=== PATIENT | female | born 1940 | race Caucasian/White ===

== ENCOUNTER 2018-04-06 21:14 | Outpatient (REF) | payer MEDICARE, BC, SELFPAY ==
[2018-04-06 22:01] LABS: Vitamin B12 175 pg/mL (193-986)
== END 2018-04-06 21:34 ==
LOC: NCHCN 21:14
PROVIDERS: PCP Internal Medicine; Visit Provider Internal Medicine
DX: E53.8 Deficiency of other specified B group vitamins (principal); R53.81 Other malaise
CPT/HCPCS: 82607

== ENCOUNTER 2018-06-12 13:33 | Outpatient (CLI) | payer MEDICARE, BC, SELFPAY ==
--- NOTE | 2018-06-12 12:59 | DI.RAD_ITS ---
SYMPTOM/DIAGNOSIS: RIGHT HAND PAIN M79.641, M79.644, M25.531, M18.12 C43.9 RIGHT HAND: There are no prior comparison exams. There are moderate degenerative changes of the 1st metacarpal phalangeal joint. Mild degenerative changes are seen at the interphalangeal joint, the carpal metacarpal joints. IMPRESSION: Degenerative changes, greatest at the 1st metacarpal phalangeal joint.
--- NOTE | 2018-06-12 12:59 | DI.RAD_ITS ---
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 There are mild degenerative changes at the intercarpal joints. There is no evidence of fracture. Moderate to severe degenerative changes are seen at the first metacarpal phalangeal joint. IMPRESSION: Moderate degenerative changes.
== END 2018-06-12 13:53 ==
PROVIDERS: PCP Internal Medicine; Visit Provider Internal Medicine
DX: M79.641 Pain in right hand (principal); M79.644 Pain in right finger(s); M25.531 Pain in right wrist; M18.12 Unilateral primary osteoarthritis of first carpometacarpal joint, left hand; C43.9 Malignant melanoma of skin, unspecified; M19.031 Primary osteoarthritis, right wrist; M19.041 Primary osteoarthritis, right hand
CPT/HCPCS: 73110; 73130

== ENCOUNTER 2019-01-02 12:21 | Outpatient (REF) | payer MEDICARE, BC, SELFPAY ==
[2019-01-02 21:47] LABS: BUN 22 mg/dL (7-18); CREATININE 0.52 mg/dL (0.55-1.02); Calcium 9.3 mg/dL (8.5-10.1); Chloride 107 mmol/L (98-107); Glucose 181 mg/dL (70-100); Potassium 4.4 mmol/L (3.5-5.1); Sodium 143 mmol/L (136-145); TSH 0.42 uIU/mL (0.358-3.74)
== END 2019-01-02 12:41 ==
LOC: NCHCN 12:21
PROVIDERS: PCP Internal Medicine; Visit Provider Internal Medicine
DX: E03.2 Hypothyroidism due to medicaments and other exogenous substances (principal); E11.49 Type 2 diabetes mellitus with other diabetic neurological complication
CPT/HCPCS: 80048; 84443

== ENCOUNTER 2019-04-09 19:42 | Observation (INO) | payer MEDICARE, BC, SELFPAY ==
[2019-04-09] VITALS (39 sets, daily range): BP systolic 129–199; BP diastolic 52–115; PULSE 61–137; RESP 11–38; TEMP 36.5; O2SAT 94–99
--- NOTE | 2019-04-09 20:03 | ED.GENADUL_ITS ---
Discharge Plan Disposition Patient Disposition: [facility] INPATIENT Condition: Good Discharge Details Chief Complaint: Abd Prob Clinical Impression: Hypertensive emergency, Nausea and vomiting Admit Date/Time: 04/09/19 22:58 Admit Provider: Popeye Sousa Attending Provider: Michaela Foreman Primary Care Provider: Garcia Gilliland ED Provider: Alek Bhatia [facility] Course Hospital Course: Ms Zepeda is an 78 year old female with PMHx of breast cancer, melanoma, IDDM2, hypothyroidism, observed on [facility] hospitalist service from 04/09/19 until 04/10/19 for an episode of uncontrolled hypertension in setting of what appears to have been a viral gastroenteritis. There have been no further spikes in blood pressure on 04/10/19. Her CT imaging of the brain and abdomen was negative for any acute abnormalities or for any evidence of metastatic disease in the abdo men. Her magnesium was repleted. The patient is able to tolerate PO and is asymptomatic. She is medically ready for discharge home with follow up with her PCP within 1 week. We spoke about purchasing a blood pressure cuff for home blood pressure monitoring, which the patient is considering. The patient verbalizes some reflux symptoms on occasion, for which I am starting her on PPI. She should have bloodwork done in a week to check her chemistry and magnesium. Discharge Instructions Instructions: Acute Nausea and Vomiting (DC) Additional Instructions: Return to the hospital with any fever, bleeding, chest pain, or shortness of breath. Do not take metformin for the next 48 hours. Measure your blood pressure at home with a blood pressure cuff twice daily at the same time. Notify your MD if you are noticing blood pressures with top numbers of 170 or greater. Follow up with your PCP within 1 week. Bloodwork in 1 week. Forms: Nursing Discharge Form Referrals: Garcia Gilliland MD [Primary Care Provider] - Discharge Data Discharge Date/Time-TO BE ENTERED AT DEPARTURE: 04/10/19 00:32 Medical Decision Making 20:05 --78-year-old female here with nausea and vomiting today. Patient is tachycardic and appears dehydrated. She is also hypertensive. Abdominal exam is benign. Plan to check labs to assess for electrolyte abnormalities. Patient has no chest pain but consider atypical presentation for ACS given risk factors. I will check ECG and troponin. We will give IV fluid bolus and Zofran IV. Plan to reassess. --ECG was reviewed and interpreted by me: Sinus rhythm 79 bpm, frequent ectopic ventricular beats, left axis deviation, right bundle branch block pattern, subtle ST depressions noted lead I, aVL, these are new compared to last prior ECG in system from 11/29/2005. 21:30 --patient initially reassessed and had improved with Zofran. Now with recurrent nausea. Repeat vitals demonstrate improvement in tachycardia but persistently hypertensive. Consider hypertensive emergency. I will treat with labetalol 20 mg IV. Will give second dose of zofran. -- Patient reassessed and BP improved - decreased to 129/98. 22:45 -- CT head reviewed. No large mass. Awaiting radiology read. Patient reassessed and continues to have no abdominal pain and abdominal exam benign. Initially no inpatient beds available and patient resistant to transfer to another facility. Patient plan to leave AGAINST MEDICAL ADVICE. Fortunately a telemtry bed did become available and patient agreeable to admission. Plan for admission. Will discuss with hospitalist. 23:00 --ED presentation and course discussed with on-call hospitalist Dr. Sousa who will admit the patient. He recommends initiating oral antihypertensive metoprolol 25 mg and he will be placing admission orders. HPI General Mode of arrival: ambulatory . Date/Time Provider Initiated Documentation: 04/09/19 19:52 . Limitations to Documentation: no limitations . Information obtained by: patient . HPI Narrative: 78-year-old female with history of diabetes, hypothyroidism, hypercholesterolemia, here with chief complaint of vomiting. Patient notes that she woke up this morning feeling generally sore which she attributed to yoga from the day before. This was not out of the ordinary for her. Around 10 AM she started to have some mild nausea and anorexia. Later in the day around 3 PM she developed severe nausea and vomiting. Vomiting is persisted. Vomiting is nonbloody. No modifiers. She feels dehydrated. She denies chest pain. No abdominal pain. No urinary symptoms. No recent travel. No exotic or undercooked foods. Related Data Home Medications Medication Instructions Recorded Confirmed levothyroxine 100 mcg PO HS 08/03/13 04/09/19 Levemir FlexTouch U-100 Insuln 50 unit SUBCUT HS 04/09/19 04/09/19 anastrozole 1 mg PO DAILY 04/10/19 04/10/19 cyanocobalamin (vitamin B-12) 1,000 mcg IM [id number] 04/10/19 04/10/19 ibuprofen 800 mg PO TID PRN 04/10/19 04/10/19 magnesium oxide 400 mg PO DAILY #30 tab 04/10/19 metformin [Glucophage] 500 mg PO DAILY #0 tab 04/10/19 04/10/19 oxybutynin chloride 5 mg PO QHS 04/10/19 04/10/19 pantoprazole [Protonix] 40 mg PO DAILY #30 tab 04/10/19 venlafaxine 150 mg PO DAILY 04/10/19 04/10/19 Previous Rx's Medication Instructions Recorded magnesium oxide 400 mg PO DAILY #30 tab 04/10/19 metformin [Glucophage] 500 mg PO DAILY #0 tab 04/10/19 pantoprazole [Protonix] 40 mg PO DAILY #30 tab 04/10/19 Allergies Allergy/AdvReac Type Severity Reaction Status Date / Time penicillin G Allergy Intermediate Hives Unverified 04/09/19 19:52 morphine AdvReac Severe Nausea Unverified 04/09/19 19:52 General Stated Complaint: Abd Prob YU: 3 Review of Systems Review of Systems ROS Unobtainable: All systems reviewed & are unremarkable except as noted in HPI and below Constitutional Constitutional: Denies fever(s) Gastrointestinal Gastrointestinal: Reports loose stools, Reports nausea and Reports vomiting PFSH Social History Smoking/Tobacco Use Status: Current every day Tobacco Type: cigarettes Alcohol Intake: current Alcohol Intake frequency: holidays/special occasions only Drug use: Never Substance use type: does not use Do you feel safe at home: Yes Do you feel safe in your relationship?: Yes Exam Const General: cooperative and no acute distress [facility] Head: normocephalic Eyes Conjunctivae: normal conjunctivae Sclera: normal sclerae Neck Neck: trachea midline and supple Resp Auscultation: clear to auscultation bilaterally, no rales, no rhonchi and no wheezes Cardio Jugular venous pressure: no JVD Rate: tachycardic Rhythm: regular rhythm Heart Sounds: no murmurs GI Palpation: soft, not firm, no guarding, no masses, not rigid and nontender Skin General skin exam: no rashes or lesions noted Neuro General: alert, awake and tone normal Extrem General: no edema Psych Appearance: grossly normal Mental Status: mental status grossly normal Course Vital Signs Vital signs: Vital Signs Temperature 36.5 C 04/09/19 19:46 Pulse 137 H 04/09/19 19:46 Respiratory Rate 28 H 04/09/19 19:46 Blood Pressure 199/115 H 04/09/19 19:46 Pulse Oximetry 97 04/09/19 19:46 Temperature 36.5 C 04/09/19 19:46 Temperature Source Skin 04/09/19 19:46 Pulse 137 H 04/09/19 19:46 Respiratory Rate 28 H 04/09/19 19:46 Respiratory Effort Non-Labored 04/09/19 19:54 Blood Pressure 199/115 H 04/09/19 19:46 Blood Pressure Position Sitting 04/09/19 19:46 Pulse Oximetry 97 04/09/19 19:46 Oxygen Delivery Method Room Air 04/09/19 19:46 Oxygen Flow Rate 0 04/09/19 19:46 Pain Level 7 04/09/19 19:46
[2019-04-09] MEDS: Lactated Ringers 1,000 ML 1000 ML IV (20:23)
[2019-04-09] MEDS: Ondansetron 4 MG/2 ML VIAL IVP ×2 (20:23→21:48)
[2019-04-09 20:33] LABS: Abs Immature Grans 0.01 k/cumm (0.0-0.09); Absolute Basophil Count 0.02 k/cumm (0.0-0.2); Absolute Eosinophil Count 0.07 k/cumm (0.0-0.7); Absolute Monocyte Count 0.56 k/cumm (0.11-0.7); Absolute Neutrophil Count 5.03 k/cumm (1.2-6.7); Basophils % 0.3; Eosinophils % 1.1; HCT 35.5 % (36.0-46.0); Immature Grans % 0.2; Lymphocytes % 12.3; Mean Corpuscular Hemoglobin 21.2 pg (27.0-33.0); Mean Platelet Volume 10.3 fL (8.0-11.0); Monocytes % 8.6; Neutrophils % 77.5; Platelet Count 261 x1000/uL (130-400); RBC Distribution Width 18.3 % (11.7-14.6); White Blood Cell Count 6.49 k/cumm (4.4-10.8)
[2019-04-09 20:36] LABS: Mean Corpuscular Volume 68.3 fL (80-95)
[2019-04-09 21:08] LABS: Anisocytosis 1+; Hypochromasia 2+; Microcytosis 2+
[2019-04-09 21:17] LABS: ALT 18 U/L (14-59); AST 16 U/L (15-37); Albumin 3.6 g/dL (3.4-5.0); Alkaline Phosphatase 76 U/L (46-116); Anion Gap 9.9 mmol/L (3-11); BUN 17 mg/dL (7-18); Bilirubin, Total 0.5 mg/dL (0.2-1.0); CO2 26.1 mmol/L (21.0-32.0); CREATININE 0.59 mg/dL (0.55-1.02); Chloride 107 mmol/L (98-107); Glucose 209 mg/dL (70-100); Lipase 66 U/L (73-393); Magnesium 1.6 mg/dL (1.8-2.4); Potassium 3.8 mmol/L (3.5-5.1); Sodium 143 mmol/L (136-145)
[2019-04-09 21:25] LABS: Troponin I < 0.05 ng/mL (0.00-0.06)
--- NOTE | 2019-04-09 21:34 | DI.CT_ITS ---
EXAM: CT HEAD WO CLINICAL HISTORY: hypertension, vomiting, hx breast CA. TECHNIQUE: The exam was performed according to the usual protocol without intravenous contrast mater ial. COMPARISON: No exams were available for comparison FINDINGS: Age-appropriate atrophic changes are identified. There is no evidence of a hemorrhage or mass. There are regions of diminished absorption involving the frontoparietal white matter consistent with small vessel disease. There is no skull fracture. The sinuses are normal. There is no mastoid effusion. T he soft tissues are unremarkable. IMPRESSION: No acute intracranial abnormality is demonstrated.
[2019-04-09] MEDS: Labetalol 100 MG/20 ML VIAL 20 MG IVP (21:49)
--- NOTE | 2019-04-09 22:50 | DI.VRAD_ITS ---
PROCEDURE INFORMATION: Exam: CT Head Without Contrast Exam date and time: 04/09/2019 9:38 PM Clinical history: 78 years old, female; Patient HX: Hypertension, vomiting, HX breast CA TECHNIQUE: Imaging protocol: Computed tomography of the head without contrast. COMPARISON: MRI - BRAIN W/WO CONTRAST 04/20/2013 4:43 PM FINDINGS: Brain: Typical for age. No hemorrhage. No evidence of acute infarct. No mass. Ventricles: No ventriculomegaly. Bones/joints: Unremarkable. Sinuses: No sinus fluid. Mastoid air cells: Unremarkable. Soft tissues: Unremarkable. IMPRESSION: No acute intracranial abnormality. Dictated and Authenticated by: Garcia Jin MD. Ordering:STALIN Gaston MD
[2019-04-09] MEDS: Metoprolol 25 MG TAB PO (23:06)
[2019-04-09] MEDS: Magnesium Oxide 400 MG TAB PO (23:06)
--- NOTE | 2019-04-09 23:31 | HPE_ITS ---
Date of service: 04/09/19 Time of Service: 23:31 Assessment and Plan Assessment and plan (1) Uncontrolled hypertension: Start date: 04/09/19 Status: Acute Assessment and plan: The patient is currently not on anti-hypertensives but with her acute symptoms she was extremely hypertensive requiring treatment in the ED. We will observe her overnight with continued oral metoprolol after receiving labetalol IV and 1 dose of metoprolol which did bring her blood pressure more toward normal. She has not taken any of her diabetic medications today and will have glucometer coverage during her short stay. She will receive IV hydration overnight and advance oral intake in the morning with discharge home if she is doing well. Long-term she may want further evaluation of her recent onset of epigastric discomfort and heartburn. (2) Nausea and vomiting: Start date: 04/09/19 Status: Acute Assessment and plan: This is of sudden onset the day of admission she has had 2 months of some abdominal discomfort and has had a previous gallbladder removal with no hematemesis with her vomiting on the day of admission. Patient can discuss further evaluation as an outpatient with her PMD with at least an EGD to be entertained with her recent symptoms and this severe episode. Lab will be followed up in the morning. Qualifiers: Vomiting Intractability: non-intractable Vomiting type: unspecified Qualified Code(s): R11.2 - Nausea with vomiting, unspecified History of Present Illness History of Present Illness Chief Complaint: Nausea and vomiting at onset with increased blood pressure in the ED Narrative: This is an 78-year-old lady who awakened in the morning of admission feeling sore from the previous day of weekly yoga which is not unusual for her. She also walks daily with her to border colleagues. She had nausea and decreased appetite during the day and began to have severe nausea and vomiting prompting her to present to the ED for evaluation. In the ED she was found to be extremely hypertensive and did respond to IV fluid resuscitation for probable dehydration with her fluid loss and IV labetalol and then oral metoprolol with blood pressure control. Her initial lab showed hyperglycemia and slight hypomagnesemia but otherwise was unrevealing. CT scan of the head was unrevealing with the patient having mild headache intermittently in the recent past. She does have a history of breast cancer but without metastases. She is generally healthy with diabetes, well- controlled hypothyroidism and on no antihypertensives chronically. She is on treatment for hyperlipidemia. She does smoke but states that she is quitting. She has had no cardiac events and had no complaints of chest pain with this presentation. At the time I saw the patient she stated that all her nausea and acute symptoms had resolved. Review of Systems Review of Systems Narrative: 13 point review of systems otherwise unrevealing or stable except for her presentation the day of admission. [facility] Social History Smoking/Tobacco Use Status: Current every day Tobacco Type: cigarettes Alcohol Intake: current Alcohol Intake frequency: holidays/special occasions only Drug use: Never Substance use type: does not use Do you feel safe at home: Yes Do you feel safe in your relationship?: Yes Meds Home Medications and Allergies Home Medications Medication Instructions Recorded Confirmed Type amitriptyline 150 mg PO HS 08/03/13 04/09/19 History aspirin 325 mg PO HS 08/03/13 04/09/19 History glimepiride 8 mg PO HS 08/03/13 04/09/19 History levothyroxine 100 mcg PO HS 08/03/13 04/09/19 History metformin [Glucophage] 1,000 mg PO HS 08/03/13 04/09/19 History pravastatin 40 mg PO HS 08/03/13 04/09/19 History insulin detemir U-100 [Levemir 50 unit SUBCUT HS 04/09/19 04/09/19 History FlexTouch U-100 Insuln] Allergies Allergy/AdvReac Type Severity Reaction Status Date / Time penicillin G Allergy Intermediate Hives Unverified 04/09/19 19:52 morphine AdvReac Severe Nausea Unverified 04/09/19 19:52 Exam Narrative Exam Narrative: General: Patient is alert and oriented x3 and in no acute distress. She appears comfortable. Affect is normal and she has good eye contact. Memory is intact. HEENT: Normocephalic with eyes having pupils equal and reactive to light symmetrically with extraocular movement intact and sclera anicteric. Oropharynx clear with moist mucosa. Neck: Supple without JVD. Back: Normal posture without CVA tenderness. Lungs: Bronchovesicular breath sounds diffusely with no focalizing rales or rhonchi. No expiratory wheeze. Heart: Regular rate and rhythm at the time of my exam with the patient being tac hycardic in the ED. No murmurs or gallops appreciated. Breast: Exam deferred. Abdomen: Slightly protuberant and obese but soft to palpation with no tenderness, no palpable masses and no hepatosplenomegaly. Genitalia/rectal: Exam deferred. Extremities: Without clubbing cyanosis or edema. Peripheral pulses intact. Neuro: No focalizing motor deficits, cranial nerves II through XII grossly intact and sensation grossly intact. Skin: Warm and dry with thin skin and actinic changes diffusely with scaliness and rough texture. Psych: Normal affect and mood. Results Imaging Imaging Studies: Exam(s) PROCEDURE INFORMATION: Exam: CT Head Without Contrast Exam date and time: 04/09/2019 9:38 PM Clinical history: 78 years old, female; Patient HX: Hypertension, vomiting, HX breast CA TECHNIQUE: Imaging protocol: Computed tomography of the head without contrast. COMPARISON: MRI - BRAIN W/WO CONTRAST 04/20/2013 4:43 PM FINDINGS: Brain: Typical for age. No hemorrhage. No evidence of acute infarct. No mass. Ventricles: No ventriculomegaly. Bones/joints: Unremarkable. Sinuses: No sinus fluid. Mastoid air cells: Unremarkable. Soft tissues: Unremarkable. IMPRESSION: No acute intracranial abnormality. Dictated and Authenticated by: Garcia Jin MD. Labs Result diagrams: 04/09/19 20:20 04/09/19 20:20 Labs: Laboratory Results - last 24 hr 04/09/19 04/09/19 20:20 20:20 WBC 6.49 RBC 5.20 Hgb 11.0 L Hct 35.5 L MCV 68.3 L MCH 21.2 L MCHC 31.0 L RDW 18.3 H Plt Count 261 MPV 10.3 Immature Gran % 0.2 Neutrophils % 77.5 Lymphocytes % 12.3 Monocytes % 8.6 Eosinophils % 1.1 Basophils % 0.3 Absolute Neutrophils 5.03 Absolute Lymphocytes 0.80 L Absolute Monocytes 0.56 Absolute Eosinophils 0.07 Absolute Basophils 0.02 RBC Morphology See below Hypochromasia 2+ Anisocytosis 1+ Microcytosis 2+ Sodium 143 Potassium 3.8 Chloride 107 Carbon Dioxide 26.1 Anion Gap 9.9 BUN 17 Creatinine 0.59 Estimated GFR/1.73 m2 >= 60.00 Glucose 209 H Calcium 9.0 Magnesium 1.6 L Total Bilirubin 0.5 AST 16 ALT 18 Alkaline Phosphatase 76 Troponin I < 0.05 Total Protein 7.0 Albumin 3.6 Lipase 66 L Last Vital Signs Temp 36.5 C 04/09/19 19:46 Pulse 66 04/09/19 23:01 Resp 24 04/09/19 23:01 BP 157/64 H 04/09/19 23:01 Pulse Ox 96 04/09/19 23:10
[2019-04-09 23:34] LABS: Troponin I < 0.05 ng/mL (0.00-0.06)
[2019-04-10] VITALS (11 sets, daily range): BP systolic 110–151; BP diastolic 60–77; PULSE 54–72; RESP 16–18; TEMP 36–37; O2SAT 94–98
[2019-04-10 01:09] LABS: Bilirubin Negative (Negative); Blood Negative (Negative); Clarity Clear (Clear); Glucose Negative (Negative); Ketones 80 mg/dL (Negative); Leukocyte Esterase Negative (Negative); Nitrite Negative (Negative); Urobilinogen 0.2 EU/dL (Up TO 0.2); pH 6.5 (5-8)
[2019-04-10] MEDS: Insulin Aspart 300 UNITS/3 ML PEN SC ×3 (01:25→12:11)
[2019-04-10] MEDS: Normal Saline 1,000 ML 125 ML IV ×2 (01:27→09:14)
[2019-04-10] MEDS: Heparin 5,000 UNITS/ML VIAL 5000 UNITS SC ×2 (01:27→05:58)
[2019-04-10] MEDS: Ondansetron O.D.T. 4 MG TABEF PO (03:57)
[2019-04-10] MEDS: Metoprolol 25 MG TAB PO ×2 (05:58→12:16)
[2019-04-10 06:03] LABS: HCT 31.4 % (36.0-46.0); HGB 9.7 g/dL (12.0-15.5); Mean Corp. HGB Concentration 30.9 g/dL (32.0-36.0); Mean Corpuscular Hemoglobin 21.4 pg (27.0-33.0); Mean Corpuscular Volume 69.3 fL (80-95); Mean Platelet Volume 10.2 fL (8.0-11.0); Platelet Count 229 x1000/uL (130-400); RBC 4.53 m/cumm (4.00-5.20); White Blood Cell Count 6.49 k/cumm (4.4-10.8)
[2019-04-10 06:21] LABS: ALT 14 U/L (14-59); AST 13 U/L (15-37); Albumin 3.1 g/dL (3.4-5.0); Alkaline Phosphatase 63 U/L (46-116); BUN 12 mg/dL (7-18); Bilirubin, Total 0.5 mg/dL (0.2-1.0); CO2 28.8 mmol/L (21.0-32.0); CREATININE 0.59 mg/dL (0.55-1.02); Calcium 8.4 mg/dL (8.5-10.1); Glucose 154 mg/dL (70-100); Magnesium 1.6 mg/dL (1.8-2.4); TSH (W/Ref FT4) 1.22 uIU/mL (0.36-3.74); Troponin I < 0.05 ng/mL (0.00-0.06)
[2019-04-10 06:46] LABS: Hemoglobin A1C 6.6 % (4.5-6.2)
[2019-04-10 08:57] LABS: Anion Gap 5.5 mmol/L (3-11); BUN 11 mg/dL (7-18); CO2 28.5 mmol/L (21.0-32.0); CREATININE 0.67 mg/dL (0.55-1.02); Calcium 8.3 mg/dL (8.5-10.1); Chloride 109 mmol/L (98-107); Glucose 174 mg/dL (70-100); Potassium 3.9 mmol/L (3.5-5.1); Sodium 143 mmol/L (136-145)
[2019-04-10] MEDS: Pantoprazole 40 MG VIAL IVP (09:13)
[2019-04-10] MEDS: MAGNESIUM SULFATE 2 GM/50 ML BAG IVPB (09:14)
[2019-04-10] MEDS: Magnesium Oxide 400 MG TAB PO (09:14)
[2019-04-10] MEDS: Normal Saline Flush 10 ML SYR IVP (09:20)
--- NOTE | 2019-04-10 10:45 | INITIAL_ITS ---
Care Management Initial Assess REASON FOR HOSPITALIZATION:: Uncontrolled HTN, N/V PAST MEDICAL HISTORY/PAST SURGICAL HISTORY:: Current everyday cigarette smoker PREVIOUS FUNCTIONAL STATUS/SOCIAL/FAMILY SUPPORTS:: Umu is and resides alone in [place], [place]. She has a sister in [place] and a friend in [place], [place]. She participates in weekly yoga and walks daily with her border collSurvature. CURRENT FUNCTIONAL STATUS:: Umu was lying in bed, medical staff director at her bedside. was unable to connect with Umu and will re-attempt tomorrow. ADVANCE DIRECTIVES:: None on file at [facility]. Has patient been provided with information about the portal?: Yes Did the patient sign up for the portal?: No CODE STATUS:: Full Code INSURANCE COVERAGE / FINANCIAL ISSUES:: /BS. Medicare CURRENT HOME/COMMUNITY SERVICES/EQUIPMENT:: No current services or equipment. PRIMARY CARE PHYSICIAN:: Garcia Gilliland POTENTIAL DISCHARGE NEEDS:: Palliative consult, further evaluation for additional equipment services, follow up appointments. PATIENT/FAMILY EDUCATION NEEDS:: Review of discharge instructions, discuss Ask Me [employer]. ANTICIPATED BARRIERS TO DISCHARGE:: None identified. TRANSPORTATION:: Via private vehicle with a friend. PLAN:: Umu will discharge home when ready per MD. She will follow up with her PCP and plan of care as prescribed. She will transport via private vehicle with a friend.
[2019-04-10 12:30] LABS: Sodium 145 mmol/L (136-145)
[2019-04-10 12:33] LABS: Potassium 4.1 mmol/L (3.5-5.1)
[2019-04-10 12:34] LABS: Chloride 110 mmol/L (98-107)
[2019-04-10 12:45] LABS: Anion Gap 6.2 mmol/L (3-11)
[2019-04-10 12:52] LABS: HCT 33.9 % (36.0-46.0); HGB 10.2 g/dL (12.0-15.5)
--- NOTE | 2019-04-10 13:20 | DI.CT_ITS ---
EXAM: CT ABDOMEN PELVIS W CLINICAL HISTORY: nausea/vomiting; history of mets to liver. TECHNIQUE: The study was carried out with an intravenous injection of 100 cc of Omnipaque 350. COMPARISON: No exams were available for comparison FINDINGS: Regions of increased density in the left lung base may represent fibrotic changes. Possibility of an acute pneumonitis could not be entirely excluded. These findings to be correlated with the patient' s clinical status. No focal abnormality is demonstrated in the liver. The pancreas and spleen are i ntact. Aside from a small cortical right renal cyst, the kidneys are unremarkable. The adrenals are normal. There is no evidence of bowel obstruction. Diverticulosis is demonstrated without evidence of diverticulitis. There is nothing to suggest an acute appendix. There is no evidence of free air or free fluid in the intraperitoneal space. There is an apparent fibroid uterus. The bladder is sub optimally distended; bladder wall thickening is on that basis. There is no evidence of an aortic ane urysm. Small fat-containing umbilical hernia is demonstrated. Diffuse degenerative changes involvin g the lumbar spine are noted with vacuum discs, echogenic sclerosis and hypertrophic spurring. IMPRESSION: There is evidence of diverticulosis without diverticulitis. There is no focal abnormality in the blair er to suggest metastatic disease.
[2019-04-10] MEDS: Breeza Beverage 473 ML BTL PO (13:39)
[2019-04-10] MEDS: Omnipaque 350 MG/ML 100 ML BTL IJ (13:39)
[2019-04-10] MEDS: Omnipaque 350 MG/ML 50 ML BTL IJ (13:40)
--- NOTE | 2019-04-10 16:10 | CHAPLAIN ---
Umu was resting in bed when I visited. She was very pleasant and easily engaged in a conversation. She said she doesn't have family in the area, but has a friend who visiting and also caring for her two border collie. I explained my role and offered support. I'll continue to visit.
--- NOTE | 2019-04-10 16:30 | W.PM.DS.N ---
Date of service: 04/10/19 Time of Service: 16:30 DS: Diagnosis Discharge Diagnosis (1) Hypertensive urgency: Status: Resolved (2) Viral gastroenteritis: Status: Resolved (3) Hypomagnesemia: Status: Acute (4) Breast cancer: Status: Chronic (5) Melanoma: Status: Acute Discharge Plan Disposition Patient Disposition: HOME Condition: Good Discharge Details Chief Complaint: Abd Prob Clinical Impression: Hypertensive emergency, Nausea and vomiting Reason For Visit: UNCONTROLLED HTN, NAUSEA AND VOMITING Admit Date/Time: 04/09/19 22:58 Admit Provider: Popeye Sousa Attending Provider: Popeye Sousa Primary Care Provider: Garcia Gilliland ED Provider: Alek Bhatia Hospital Course Hospital Course: Ms Zepeda is an 78 year old female with PMHx of breast cancer, melanoma, IDDM2, hypothyroidism, observed on [facility] hospitalist service from 04/09/19 until 04/10/19 for an episode of uncontrolled hypertension in setting of what appears to have been a viral gastroenteritis. There have been no further spikes in blood pressure on 04/10/19. Her CT imaging of the brain and abdomen was negative for any acute abnormalities or for any evidence of metastatic disease in the abdomen. Her magnesium was repleted. The patient is able to tolerate PO and is asymptomatic. She is medically ready for discharge home with follow up with her PCP within 1 week. We spoke about purchasing a blood pressure cuff for home blood pressure monitoring, which the patient is considering. The patient verbalizes some reflux symptoms on occasion, for which I am starting her on PPI. She should have bloodwork done in a week to check her chemistry and magnesium. Home Meds and New Rx's Prescriptions: New magnesium oxide 400 mg (241.3 mg magnesium) Tablet 400 mg PO DAILY Qty: 30 RF: 0 pantoprazole [Protonix] 40 mg tablet,delayed release (DR/EC) 40 mg PO DAILY Qty: 30 RF: 0 Continued levothyroxine 100 MCG tablet 100 mcg PO HS RF: 0 Levemir FlexTouch U-100 Insuln 100 unit/mL (3 mL) Insulin Pen 50 unit SUBCUT HS RF: 0 anastrozole 1 mg Tablet 1 mg PO DAILY RF: 0 ibuprofen 800 mg Tablet 800 mg PO TID PRNRF: 0 venlafaxine 150 mg Capsule,Extended Release 24hr 150 mg PO DAILY RF: 0 oxybutynin chloride 5 mg Tablet 5 mg PO QHS RF: 0 cyanocobalamin (vitamin B-12) 1,000 mcg/mL Solution 1,000 mcg IM [id number] RF: 0 metformin [Glucophage] 1,000 MG tablet 500 mg PO DAILY Qty: 0 RF: 0 Discharge Instructions Instructions: Acute Nausea and Vomiting (DC) Additional Instructions: Return to the hospital with any fever, bleeding, chest pain, or shortness of breath. Do not take metformin for the next 48 hours. Measure your blood pressure at home with a blood pressure cuff twice daily at the same time. Notify your MD if you are noticing blood pressures with top numbers of 170 or greater. Follow up with your PCP within 1 week. Bloodwork in 1 week. Referrals: Garcia Gilliland MD [Primary Care Provider] - Activity:: Activity as Tolerated Equipment/Supplies:: No Equipment Needed Diet:: carb consistent low sodium (2 grams per day) Discharge Orders Discharge Orders: Discharge Order (Routine); Ordered 04/10/19 Ordered By: Michaela Foreman Other Ambulatory Orders: Basic Metabolic Panel (Routine) Timeframe: 1 Week Location: Determined by Patient Ordered By: Michaela Foreman Magnesium (Routine) Timeframe: 1 Week Location: Determined by Patient Ordered By: Michaela Foreman DS: Summary Status at Discharge Functional status at discharge: independent ambulation Overall status at discharge: patient is back to baseline Mental Status: mental status grossly normal Speech and Movement: speech and movement normal Mood: congruent mood Affect: normal affect Exam Narrative Exam Narrative: General: Very pleasant, anxious elderly female, sitting up in bed HEENT: EOMI, MMM Heart: RRR, no m/r/g Lungs: CTAB GI: abdomen is soft, nontender, nondistended Extremities: no e/c/c BLe's Psych Mental Status: mental status grossly normal Speech and Movement: speech and movement normal Mood: congruent mood Affect: normal affect DS: Data Vitals/I&O Vitals and I&O: Vital Signs Temperature 36.2 C L 04/10/19 13:45 Temperature Source Tympanic 04/10/19 13:45 Pulse 54 L 04/10/19 13:45 Pulse Rhythm Regular 04/10/19 15:59 Pulse 80 04/09/19 23:10 Respiratory Rate 18 04/10/19 13:45 Respiratory Effort Non-Labored 04/10/19 15:59 Respiratory Depth Normal 04/10/19 15:59 Respiratory Pattern Normal 04/10/19 15:59 Blood Pressure 110/60 04/10/19 13:45 Blood Pressure Mean 88 04/09/19 23:01 Blood Pressure Position Sitting 04/09/19 19:46 Pulse Oximetry 95 04/10/19 13:45 Oxygen Delivery Method Room Air 04/10/19 13:45 Oxygen Flow Rate 0 04/10/19 13:45 Pain Level 0 04/10/19 13:45 Intake & Output 04/09/19 04/10/19 04/10/19 23:59 11:59 23:59 Intake Total 1000 / 1000 1402.917 / 1402.917 Output Total 750 / 750 Balance 1000 / 1000 652.917 / 652.917 Weight 64.1 kg 63.4 kg Intake: IV 1000 / 1000 982.917 / 982.917 Oral 420 / 420 Output: Urine 750 / 750 Other: Urine Color Yellow Yellow Urine Appearance Cloudy Clear Urine Odor Strong Comment color was dark yellow. 900 ml in hat Voiding Methods Toilet Data Completed and Pending Completed studies during hospitalization [Text1]: CT head without contrast: No acute intracranial abnormality is demonstrated. CT abdomen/pelvis: There is evidence of diverticulosis without diverticulitis. There is no focal abnormality in the liver to suggest metastatic disease. Labs on day of discharge: Labs from last 24 hours 04/10/19 04/10/19 04/10/19 12:35 12:00 08:40 WBC RBC Hgb 10.2 L Hct 33.9 L MCV MCH MCHC RDW Plt Count MPV Immature Gran % Neutrophils % Lymphocytes % Monocytes % Eosinophils % Basophils % Absolute Neutrophils Absolute Lymphocytes Absolute Monocytes Absolute Eosinophils Absolute Basophils RBC Morphology Hypochromasia Anisocytosis Microcytosis Sodium Cancelled 143 Potassium Cancelled 3.9 Chloride Cancelled 109 H Carbon Dioxide Cancelled 28.5 Anion Gap Cancelled 5.5 BUN Cancelled 11 Creatinine Cancelled 0.67 Estimated GFR/1.73 m2 Cancelled >= 60.00 Glucose Cancelled 174 H Hemoglobin A1c Calcium Cancelled 8.3 L Magnesium Total Bilirubin AST ALT Alkaline Phosphatase Troponin I Total Protein Albumin Lipase TSH Urine Color Urine Clarity Urine pH Ur Specific Wray Urine Protein Urine Ketones Urine Blood Urine Nitrite Urine Bilirubin Urine Urobilinogen Ur Leukocyte Esterase Urine Glucose 04/10/19 04/10/19 04/10/19 05:40 05:40 05:40 WBC 6.49 RBC 4.53 Hgb 9.7 L Hct 31.4 L MCV 69.3 L MCH 21.4 L MCHC 30.9 L RDW 18.0 H Plt Count 229 MPV 10.2 Immature Gran % Neutrophils % Lymphocytes % Monocytes % Eosinophils % Basophils % Absolute Neutrophils Absolute Lymphocytes Absolute Monocytes Absolute Eosinophils Absolute Basophils RBC Morphology Hypochromasia Anisocytosis Microcytosis Sodium 145 Potassium 4.1 Chloride 110 H Carbon Dioxide 28.8 Anion Gap 6.2 BUN 12 Creatinine 0.59 Estimated GFR/1.73 m2 >= 60.00 Glucose 154 H Hemoglobin A1c 6.6 H Calcium 8.4 L Magnesium 1.6 L Total Bilirubin 0.5 AST 13 L ALT 14 Alkaline Phosphatase 63 Troponin I Total Protein 6.0 L Albumin 3.1 L Lipase TSH 1.22 Urine Color Urine Clarity Urine pH Ur Specific Wray Urine Protein Urine Ketones Urine Blood Urine Nitrite Urine Bilirubin Urine Urobilinogen Ur Leukocyte Esterase Urine Glucose 04/10/19 04/10/19 04/09/19 05:40 00:52 23:09 WBC RBC Hgb Hct MCV MCH MCHC RDW Plt Count MPV Immature Gran % Neutrophils % Lymphocytes % Monocytes % Eosinophils % Basophils % Absolute Neutrophils Absolute Lymphocytes Absolute Monocytes Absolute Eosinophils Absolute Basophils RBC Morphology Hypochromasia Anisocytosis Microcytosis Sodium Potassium Chloride Carbon Dioxide Anion Gap BUN Creatinine Estimated GFR/1.73 m2 Glucose Hemoglobin A1c Calcium Magnesium Total Bilirubin AST ALT Alkaline Phosphatase Troponin I < 0.05 < 0.05 Total Protein Albumin Lipase TSH Urine Color Yellow Urine Clarity Clear Urine pH 6.5 Ur Specific Wray 1.020 Urine Protein Negative Urine Ketones 80 H Urine Blood Negative Urine Nitrite Negative Urine Bilirubin Negative Urine Urobilinogen 0.2 Ur Leukocyte Esterase Negative Urine Glucose Negative 04/09/19 04/09/19 20:20 20:20 WBC 6.49 RBC 5.20 Hgb 11.0 L Hct 35.5 L MCV 68.3 L MCH 21.2 L MCHC 31.0 L RDW 18.3 H Plt Count 261 MPV 10.3 Immature Gran % 0.2 Neutrophils % 77.5 Lymphocytes % 12.3 Monocytes % 8.6 Eosinophils % 1.1 Basophils % 0.3 Absolute Neutrophils 5.03 Absolute Lymphocytes 0.80 L Absolute Monocytes 0.56 Absolute Eosinophils 0.07 Absolute Basophils 0.02 RBC Morphology See below Hypochromasia 2+ Anisocytosis 1+ Microcytosis 2+ Sodium 143 Potassium 3.8 Chloride 107 Carbon Dioxide 26.1 Anion Gap 9.9 BUN 17 Creatinine 0.59 Estimated GFR/1.73 m2 >= 60.00 Glucose 209 H Hemoglobin A1c Calcium 9.0 Magnesium 1.6 L Total Bilirubin 0.5 AST 16 ALT 18 Alkaline Phosphatase 76 Troponin I < 0.05 Total Protein 7.0 Albumin 3.6 Lipase 66 L TSH Urine Color Urine Clarity Urine pH Ur Specific Wray Urine Protein Urine Ketones Urine Blood Urine Nitrite Urine Bilirubin Urine Urobilinogen Ur Leukocyte Esterase Urine Glucose PFS Social History Smoking/Tobacco Use Status: Current every day Tobacco Type: cigarettes Alcohol Intake: current Alcohol Intake frequency: holidays/special occasions only Drug use: Never Substance use type: does not use Do you feel safe at home: Yes Do you feel safe in your relationship?: Yes
--- NOTE | 2019-04-11 13:59 | PT.INNT ---
Date of service: 04/11/19 Time of Service: 14:00 PT Notes Referral for physical therapy evaluation received on 04/10/2019 at 12:38 PM. Patient discharged from hospital later in the afternoon same day per MD order. Thank you very much for this referral. Radha Arellano PT, DPT, CLT [facility]
== END 2019-04-10 17:37 | disposition home or self-care (01) ==
LOC: ER 23:00 → MS 04-10 00:33
PROVIDERS: Admitting Provider Family Medicine; Emergency Provider Student in an Organized Health Care Education/Training Program; PCP Internal Medicine; Visit Provider Internal Medicine
DX: I16.0 Hypertensive urgency (principal); I10 Essential (primary) hypertension; A08.4 Viral intestinal infection, unspecified; E83.42 Hypomagnesemia; R51 Headache; E11.9 Type 2 diabetes mellitus without complications; Z79.4 Long term (current) use of insulin; E03.9 Hypothyroidism, unspecified; K21.9 Gastro-esophageal reflux disease without esophagitis; C50.919 Malignant neoplasm of unspecified site of unspecified female breast; Z79.811 Long term (current) use of aromatase inhibitors; C43.9 Malignant melanoma of skin, unspecified; E78.5 Hyperlipidemia, unspecified; F17.210 Nicotine dependence, cigarettes, uncomplicated
CPT/HCPCS: 36415; 80048; 80053; 83690; 85027; 93005; 96361; 96374; 96375; 99217; 99219; 99285; 70450; 74177; 81003; 83036; 83735; 84443; 84484; 85014; 85018; 85025; 93010; G0378; J1644; J2405; J3490; Q9967

== ENCOUNTER 2019-04-19 12:14 | Outpatient (REF) | payer MEDICARE, BC, SELFPAY ==
[2019-04-19 22:31] LABS: Anion Gap 10.7 mmol/L (3-11); BUN 19 mg/dL (7-18); CO2 26.3 mmol/L (21.0-32.0); CREATININE 0.69 mg/dL (0.55-1.02); Calcium 9.2 mg/dL (8.5-10.1); Chloride 104 mmol/L (98-107); Glucose 180 mg/dL (70-100); Potassium 4.6 mmol/L (3.5-5.1); Sodium 141 mmol/L (136-145)
[2019-04-20 08:54] LABS: Magnesium 1.8 mg/dL (1.8-2.4)
== END 2019-04-19 12:34 ==
LOC: NCHCO 12:14
PROVIDERS: PCP Internal Medicine; Visit Provider Internal Medicine
DX: E83.42 Hypomagnesemia (principal); Z86.79 Personal history of other diseases of the circulatory system
CPT/HCPCS: 80048; 83735

== ENCOUNTER 2020-03-31 21:35 | Outpatient (REF) | payer MEDICARE, BC, SELFPAY ==
[2020-03-31 22:02] LABS: HCT 37.6 % (36.0-46.0); MCH 19.5 pg (27.0-33.0); MCHC 29.3 % (32.0-36.0); MCV 66.7 fL (80-95); MPV 11.2 fL (8.0-11.0); Platelet Count 292 10^3/uL (130-400); RBC 5.64 10^6/uL (3.93-5.22); RDW 19.9 % (11.7-14.6); RDW-SD 45.3 fL; WBC 8.46 10^3/uL (4.4-10.8)
[2020-03-31 22:17] LABS: ALT 14 U/L (14-59); AST 19 U/L (15-37); Albumin 3.7 g/dL (3.4-5.0); Alkaline Phosphatase 79 U/L (46-116); Anion Gap 11.2 mmol/L (3-11); BUN 19 mg/dL (7-18); Bilirubin, Total 0.3 mg/dL (0.2-1.0); CO2 23.8 mmol/L (21.0-32.0); CREATININE 0.71 mg/dL (0.55-1.02); Calcium 9.4 mg/dL (8.5-10.1); Chloride 104 mmol/L (98-107); FREE T4 1.34 ng/dL (0.76-1.46); Glucose 173 mg/dL (74-106); Potassium 4.4 mmol/L (3.5-5.1); Sodium 139 mmol/L (136-145); TSH 1.27 uIU/mL (0.36-3.74); Total Protein 6.8 g/dL (6.4-8.2)
[2020-04-01 11:00] LABS: Iron 17 ug/dL (50-170)
== END 2020-03-31 21:55 ==
LOC: NCHCN 21:35
PROVIDERS: PCP Internal Medicine; Visit Provider Internal Medicine
DX: E03.2 Hypothyroidism due to medicaments and other exogenous substances (principal); E11.49 Type 2 diabetes mellitus with other diabetic neurological complication; R53.81 Other malaise; R11.0 Nausea; E53.8 Deficiency of other specified B group vitamins; G60.9 Hereditary and idiopathic neuropathy, unspecified; Z85.3 Personal history of malignant neoplasm of breast; D50.9 Iron deficiency anemia, unspecified
CPT/HCPCS: 80053; 85027; 83540; 84439; 84443

== ENCOUNTER → 2020-05-12 10:48 | Outpatient (BNVA) | payer MEDICARE, BC, SELFPAY | PROVIDERS: PCP Internal Medicine; Referring Provider Internal Medicine; Visit Provider Nurse Practitioner Gerontology | DX: N39.46 Mixed incontinence (principal) | CPT/HCPCS: 99204; 99215 ==

== ENCOUNTER → 2020-06-17 10:47 | Outpatient (BNVA) | payer MEDICARE, BC, SELFPAY | PROVIDERS: PCP Internal Medicine; Referring Provider Internal Medicine; Visit Provider Nurse Practitioner Gerontology | DX: N39.46 Mixed incontinence (principal) | CPT/HCPCS: 99213 ==

== ENCOUNTER 2020-09-30 15:10 | Outpatient (REF) | payer MEDICARE, BC, SELFPAY ==
[2020-09-30 21:11] LABS: HCT 43.2 % (36.0-46.0); HGB 13.3 g/dL (11.2-15.7); MCH 23.8 pg (27.0-33.0); MCHC 30.8 % (32.0-36.0); MCV 77.3 fL (80-95); MPV 10.5 fL (8.0-11.0); Platelet Count 262 10^3/uL (130-400); RBC 5.59 10^6/uL (3.93-5.22); RDW 20.6 % (11.7-14.6); RDW-SD 54.4 fL
[2020-09-30 21:19] LABS: Iron 20 ug/dL (50-170); Total Iron Binding Capacity 478 ug/dL (250-450); Transferrin Sat 4 % (15-50)
== END 2020-09-30 15:11 | disposition home or self-care (01) ==
LOC: NCHCN 15:10
PROVIDERS: PCP Internal Medicine; Visit Provider Internal Medicine
DX: E61.1 Iron deficiency (principal); D50.9 Iron deficiency anemia, unspecified
CPT/HCPCS: 85027; 83540; 83550

== ENCOUNTER 2020-11-14 04:23 | Outpatient (RCR) | payer MEDICARE, BC, SELFPAY ==
[2020-10-31] MEDS: Normal Saline Flush 10 ML SYR IVP (11:14)
[2020-10-31] MEDS: IRON SUCROSE COMPLEX 200 MG in Normal Saline 100 ML IVPB (11:19)
[2020-11-07] MEDS: Normal Saline Flush 10 ML SYR IVP (12:47)
[2020-11-07] MEDS: IRON SUCROSE COMPLEX 200 MG in Normal Saline 100 ML 440 MG IVPB (13:01)
[2020-11-14] MEDS: Normal Saline Flush 10 ML SYR IVP (12:49)
[2020-11-14] MEDS: IRON SUCROSE COMPLEX 200 MG in Normal Saline 100 ML 440 MG IVPB (12:49)
== END 2020-11-14 23:59 | disposition home or self-care (01) ==
LOC: INF 04:23
PROVIDERS: PCP Internal Medicine; Visit Provider Nurse Practitioner Acute Care
DX: E61.1 Iron deficiency (principal)
CPT/HCPCS: 96365; J1756

== ENCOUNTER 2021-05-27 14:50 | Outpatient (REF) | payer MEDICARE, BC, SELFPAY ==
[2021-05-27 21:30] LABS: HCT 42.4 % (36.0-46.0); HGB 14.2 g/dL (11.2-15.7); MCH 28.2 pg (27.0-33.0); MCHC 33.5 % (32.0-36.0); MCV 84.1 fL (80-95); MPV 11.8 fL (8.0-11.0); Platelet Count 260 10^3/uL (130-400); RBC 5.04 10^6/uL (3.93-5.22); RDW 13.6 % (11.7-14.6); RDW-SD 41.8 fL; WBC 7.92 10^3/uL (4.4-10.8)
[2021-05-28 08:40] LABS: BUN 14 mg/dL (7-18); Calcium 9.1 mg/dL (8.5-10.1); Glucose 268 mg/dL (74-106)
[2021-05-28 08:41] LABS: ALT 31 U/L (14-59); AST 21 U/L (15-37); Albumin 3.6 g/dL (3.4-5.0); Alkaline Phosphatase 92 U/L (46-116); Anion Gap 9.1 mmol/L (3-11); Bilirubin, Total 0.4 mg/dL (0.2-1.0); CO2 26.9 mmol/L (21.0-32.0); CREATININE 0.6 mg/dL (0.55-1.02); Chloride 106 mmol/L (98-107); Potassium 4.1 mmol/L (3.5-5.1); Sodium 142 mmol/L (136-145); Total Protein 6.4 g/dL (6.4-8.2)
[2021-05-28 08:42] LABS: FREE T4 0.87 ng/dL (0.76-1.46); TSH 6.32 uIU/mL (0.36-3.74)
== END 2021-05-27 14:51 | disposition home or self-care (01) ==
LOC: NCHCN 14:50
PROVIDERS: PCP Internal Medicine; Visit Provider Internal Medicine
DX: E03.2 Hypothyroidism due to medicaments and other exogenous substances (principal); R63.4 Abnormal weight loss; E83.42 Hypomagnesemia; E61.1 Iron deficiency
CPT/HCPCS: 80053; 85027; 84439; 84443

== ENCOUNTER 2021-07-22 12:03 | Outpatient (CLI) | payer MEDICARE, BC, SELFPAY ==
--- NOTE | 2021-07-22 11:00 | DI.RAD_ITS ---
Exam(s) XR SHOULDER RT COMPLETE 2+V EXAM: XR SHOULDER RT COMPLETE 2+V CLINICAL HISTORY: right shoulder pain TECHNIQUE: COMPARISON: CR RIGHT SHOULDER COMPLETE from 02/05/2014 FINDINGS: Two views were obtained. There is mild narrowing of the cartilaginous joint space of the glenohumera l joint. Superior subluxation of the humeral head is noted, this may reflect rotator cuff thinning o r tear superiorly. There are moderate hypertrophic degenerative changes of the acromioclavicular and glenohumeral joints. IMPRESSION: Degenerative changes as described above, superior subluxation of humeral head may represent rotator c uff thinning or tear superiorly. RADIATION DOSE DELIVERED: Total DLP
== END 2021-07-22 12:04 | disposition home or self-care (01) ==
LOC: DIORS 12:03
PROVIDERS: PCP Internal Medicine; Referring Provider Internal Medicine; Visit Provider Student in an Organized Health Care Education/Training Program
DX: M25.511 Pain in right shoulder (principal); M12.811 Other specific arthropathies, not elsewhere classified, right shoulder; M24.511 Contracture, right shoulder; F17.210 Nicotine dependence, cigarettes, uncomplicated; E11.69 Type 2 diabetes mellitus with other specified complication
CPT/HCPCS: 20610; 99203; 99213; 73030; J1040

== ENCOUNTER 2021-09-28 00:22 | Outpatient (CLI) | payer MEDICARE, BC, SELFPAY ==
--- NOTE | 2021-09-28 | DI.RAD_ITS ---
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 TECHNIQUE: 2D digital imaging was performed. COMPARISON: No exams were available for comparison FINDINGS: BONES: No acute fracture is present. No bony destructive lesion is seen. Osteopenia. JOINTS: No dislocation present. Joint spaces are well maintained. Minimal periarticular spurring at the 1st carpal metacarpal joint and interphalangeal joints. SOFT TISSUE: Normal. IMPRESSION: Mild degenerative changes. DATA REPOSITORY: RADIATION DOSE DELIVERED:
--- NOTE | 2021-09-28 | DI.RAD_ITS ---
Exam(s) XR WRIST LT COMPLETE EXAM: XR WRIST LT COMPLETE CLINICAL HISTORY: LT OA,M19.042. TECHNIQUE: 2D digital imaging was performed. Three views. COMPARISON: CR XR HAND LT COMPLETE from 09/28/2021 FINDINGS: BONES: Osteopenia. No acute fracture is present. No bony destructive lesion is seen. JOINTS: The carpal bones are normally aligned. Mild intercarpal degenerative changes. SOFT TISSUE: Mild calcification in the region of the triangular fibrocartilage. IMPRESSION: Mild degenerative changes. DATA REPOSITORY: RADIATION DOSE DELIVERED:
== END 2021-09-28 00:42 ==
PROVIDERS: PCP Internal Medicine; Visit Provider Internal Medicine
DX: M19.042 Primary osteoarthritis, left hand (principal); M85.88 Other specified disorders of bone density and structure, other site; M18.12 Unilateral primary osteoarthritis of first carpometacarpal joint, left hand
CPT/HCPCS: 73110; 73130

== ENCOUNTER → 2021-10-21 12:54 | Outpatient (BNVA) | payer MEDICARE, BC, SELFPAY | PROVIDERS: PCP Internal Medicine | DX: M75.101 Unspecified rotator cuff tear or rupture of right shoulder, not specified as traumatic (principal); M12.811 Other specific arthropathies, not elsewhere classified, right shoulder | CPT/HCPCS: 99213 ==

== ENCOUNTER 2021-11-23 00:22 | Outpatient (CLI) | payer MEDICARE, BC, SELFPAY ==
--- NOTE | 2021-11-23 13:32 | DI.MAMMO_ITS ---
Exam(s) MG MAMMO SCREENING 60 MIN DUR EXAM: MG MAMMO SCREENING 60 MIN DUR CLINICAL HISTORY: SCREENING, HX BREAST CA, Z85.3, RT MASTECTOMY. TECHNIQUE: Craniocaudal and mediolateral oblique Full Field Digital Mammography views of the left br east with Computer Aided Diagnosis followed by Tomosynthesis. COMPARISON: 2015 through 2019 FINDINGS: Mammography/Tomosynthesis: Masses/Architectural Distortion: None seen. Microcalcifictions: No suspicious pleomorphic-type are seen. Skin Thickening/Nipple Retraction: None. IMPRESSION: 1. No evidence of malignancy is noted. 2. Unless there is more urgent need, follow-up screening mammography is recommended, as per [place] [employer] guidelines. 3. The findings were discussed with the patient on the date of the examination. BI-RADS Category 1 - Negative Breast Density - Category B - Scattered areas of fibroglandular density . A negative radiographic report should not delay biopsy if a dominant or clinically suspicious mass is present. Up to ten percent of cancers are not identified on mammography. A negative report may reinforce clinical impression. Adenosis and dense breasts may obscure an underlying neoplasm. False positive reports average 6 to 10%. Patient will receive a letter notifying them of these results.
== END 2021-11-23 00:42 ==
PROVIDERS: PCP Internal Medicine; Visit Provider Internal Medicine
DX: Z12.31 Encounter for screening mammogram for malignant neoplasm of breast (principal); Z90.11 Acquired absence of right breast and nipple; Z85.3 Personal history of malignant neoplasm of breast
CPT/HCPCS: 77063; 77067

== ENCOUNTER 2022-03-09 15:23 | Outpatient (REF) | payer MEDICARE, BC, SELFPAY ==
[2022-03-09 19:28] LABS: TSH 4.62 uIU/mL (0.36-3.74)
[2022-03-09 19:48] LABS: FREE T4 0.83 ng/dL (0.76-1.46)
== END 2022-03-09 15:24 | disposition home or self-care (01) ==
LOC: NCHCN 15:23
PROVIDERS: PCP Internal Medicine; Visit Provider Internal Medicine
DX: E11.49 Type 2 diabetes mellitus with other diabetic neurological complication (principal); E03.9 Hypothyroidism, unspecified; G60.9 Hereditary and idiopathic neuropathy, unspecified; E53.8 Deficiency of other specified B group vitamins
CPT/HCPCS: 84439; 84443

== ENCOUNTER 2022-04-23 11:09 | Emergency (ER) | payer MEDICARE, BC, SELFPAY ==
[2022-04-23 11:10] VITALS: BP 148/69; PULSE 75; RESP 20; TEMP 36.6; O2SAT 99
--- NOTE | 2022-04-23 11:15 | RT.EKG_ITS ---
APPROVED REPORT Exam: Resting ECG Reason for Exam: AMS Patient Location: E HR:91 bpm ECG Measurements Heart Rate 91 AXIS DC 205 P -15 QRSd 122 QRS -73 QT 405 T 64 QTc 499 Conclusion Sinus rhythm...normal P axis, V-rate 60- 99 Right bundle branch block...QRSd>120, terminal axis(90,270) Inferior infarct, old...Q >35mS, II III aVF Anteroseptal infarct, age indeterminate...Q >35mS, T neg, V1-V2
--- NOTE | 2022-04-23 11:30 | DI.CT_ITS ---
Exam(s) CT CERVICAL SPINE WO EXAM: CT CERVICAL SPINE WO CLINICAL HISTORY: fall, HI. TECHNIQUE: Imaging Protocol: Axial computed tomography images with coronal and sagittal reformatted images were created and reviewed COMPARISON: CT CT BRAIN NECK CTA from 04/23/2022 FINDINGS: CERVICAL SPINE: There is reversal of the normal curvature of the cervical spine but no evidence of acute fracture and , facet malalignment, nor offset of the spinal laminar line. There is multilevel chronic disc space narrowing at C5-6 and C6-7 levels. Mild degenerative anterolisthesis of C4 upon C5 related to facet arthropathy. There is no significant facet joint malalignment. No significant osseous lesions evident. IMPRESSION: Multilevel degenerative changes. No evidence of cervical spine fracture, malalignment, nor acute compromise of the cervical spinal can al. RADIATION DOSE DELIVERED: 2,142.71mGy.cm Total DLP DATA REPOSITORY: All CT scans at this facility are submitted to the National Radiology Data Registry (NRDR) Dose Index Registry (DIR) with the [employer] (ACR). RADIATION OPTIMIZATION: All CT scans at this facility use at least one of these dose optimization te chniques: automated exposure control; mA and/or kV adjustment per patient size (includes targeted exa ms where dose is matched to clinical indication); or iterative reconstruction.
--- NOTE | 2022-04-23 11:30 | DI.RAD_ITS ---
Exam(s) XR CHEST 2V PA LATERAL EXAM: XR CHEST 2V PA LATERAL CLINICAL HISTORY: fall. TECHNIQUE: 2D digital imaging was performed. COMPARISON: No exams were available for comparison FINDINGS: 2 views: Heart size is normal. The mediastinum is not widened. Lungs are clear. No infiltrates nor pleural effusions. IMPRESSION: No acute pulmonary findings. DATA REPOSITORY: RADIATION DOSE DELIVERED:
--- NOTE | 2022-04-23 11:30 | DI.CT_ITS ---
Exam(s) CT BRAIN NECK CTA EXAM: CT BRAIN NECK CTA CLINICAL HISTORY: dizziness, fall, HI. TECHNIQUE: Imaging Protocol: Axial CT angiography was performed with multi-slice acquisition and mu lti-planar and/or 3D reconstructions. CONTRAST MATERIAL: Intravenous: Omnipaque 350 Contrast volume:structured data in ml COMPARISON: CT CT ABDOMEN PELVIS W from 04/10/2019 CR XR CHEST 2V PA LATERAL from 04/23/2022 FINDINGS: CTA Neck W: Scarring in the left upper lobe incidentally noted. Aortic arch anatomy: The aortic arch anatomy is conventional. There is no significant stenosis at the origin the great vessels off the aortic arch. Anterior circulation: Both common carotid arteries ascend with normal luminal diameters. There is a some plaque both calci fied and noncalcified at the posterior wall of the left carotid bifurcation-proximal internal carotid artery with approximately 10 percent stenosis. No hemodynamically stenosis seen at this level and t he left ICA in the upper neck is nicely patent. The right carotid bifurcation exhibits similar mild plaque on the anteromedial wall without significa nt stenosis at this level nor hemodynamically significant stenosis within the right ICA in the neck a nd this vessel is demonstrated to be patent in the skull base. Posterior circulation: Both vertebral arteries originate in conventional fashion off of the subclavian arteries. No stenosi s at their origins. The left vertebral artery is dominant. In the foramen transverse area and there is no evidence of intraluminal thrombus in the vertebral arteries nor dissection. Both vessels cont ribute to the formation of the basilar artery at the skull base. CTA Brain W: Anterior circulation: Both internal carotid arteries are patent in the skull base-carotid canals and cavernous sinuses. Wasserman praclinoid aspects are patent. Both A1 segments are patent as are both anterior cerebral arteries an d there is no aneurysm at the level of the anterior communicating artery. Both middle cerebral arteries are patent. No significant stenosis nor occlusion. No aneurysm in the se vessels. Posterior circulation: Basilar artery is formed by both vertebral arteries at the skull base and ascends slightly right of c enter. Distally gives off superior cerebellar arteries and above this level terminates as posterior cerebral arteries. Right posterior cerebral artery is patent. Left posterior cerebral artery is pre dominantly fed by posterior communicating artery on the left side of the [id number]. There is no aneurysm of the tip of the basilar artery nor elsewhere in the [id number]. CT BRAIN: There is no evidence of intracranial hemorrhage, mass effect, or shift of midline structures. There are no extra-axial fluid collections. Ventricles are not enlarged or shifted. There are no ring enh ancing lesions in the brain and no abnormal meningeal enhancement. IMPRESSION: 1. Multilevel chronic degenerative findings in the cervical spine but no evidence of acute fracture o r malalignment. No acute compromise the spinal canal. 2. No acute intracranial findings. 3. Patent intracranial arteries. Only mild plaque at the level the carotid bifurcations and proxim al internal carotid arteries bilaterally. Estimated at approximately 10 percent stenosis bilaterally . Report called by myself to ER provider RADIATION DOSE DELIVERED: 2,142.71mGy.cm Total DLP DATA REPOSITORY: All CT scans at this facility are submitted to the National Radiology Data Registry (NRDR) Dose Index Registry (DIR) with the [employer] (ACR). RADIATION OPTIMIZATION: All CT scans at this facility use at least one of these dose optimization te chniques: automated exposure control; mA and/or kV adjustment per patient size (includes targeted exa ms where dose is matched to clinical indication); or iterative reconstruction.
[2022-04-23 11:36] VITALS: RESP 18
--- NOTE | 2022-04-23 11:45 | ED.GENADUL_ITS ---
Discharge Plan Disposition Patient Disposition: HOME Condition: Stable Discharge Details Clinical Impression: Acute hypokalemia, Hypomagnesemia, Hypoglycemia, Fall, Acute UTI Primary Care Provider: Garcia Gilliland ED Provider: Kassandra Bah Home Meds and New Rx's Prescriptions: New potassium chloride 20 mEq tablet,ER particles/crystals 40 meq PO DAILY 3 Days Qty: 6 0RF cephalexin 500 mg capsule 500 mg PO Q6H 7 Days Qty: 28 0RF magnesium oxide 500 mg capsule 500 mg PO DAILY Qty: 7 0RF Continued Myrbetriq 25 mg tablet extended release 24 hr 25 mg PO DAILY Qty: 30 5RF solifenacin 5 mg tablet 5 mg PO DAILY ferrous gluconate 324 mg (38 mg iron) tablet 324 mg PO DAILY levothyroxine 100 MCG tablet 100 mcg PO HS Levemir FlexTouch U-100 Insuln 100 unit/mL (3 mL) Insulin Pen 50 unit SUBCUT HS anastrozole 1 mg Tablet 1 mg PO DAILY Label Comments: from pcp med list ibuprofen 800 mg Tablet 800 mg PO TID PRN Label Comments: from pcp med list venlafaxine 150 mg Capsule,Extended Release 24hr 150 mg PO DAILY Rx Instructions: from pcp med list cyanocobalamin (vitamin B-12) 1,000 mcg/mL Solution 1,000 mcg IM [id number] Discharge Instructions Instructions: Hypokalemia (ED), Hypomagnesemia (ED) Additional Instructions: Make sure to make sure you check your blood sugar when you arrive home Take the potassium and magnesium as prescribed Decrease your insulin to 10 units in the evening Check your blood sugar at least twice daily Follow-up with your doctor on Tuesday for reassessment and you will likely need your electrolytes rechecked at that time Please return immediately should you have new or worsening complaints take antibiotic as prescribed for uti Referrals: Garcia Gilliland MD [Primary Care Provider] - Discharge Data Discharge Date/Time-TO BE ENTERED AT DEPARTURE: 04/23/22 16:28 Medical Decision Making Patient with hypokalemia, 2.7, hypomagnesemia, 1.7, reported hypoglycemia of 60 per EMS with improved mentation after D10 administrationby ems CTA head and cervical spine does not show evidence of acute abnormality per radiology interpretation my review, this was reviewed with Dr. Sheldon, radio logist Chest x-ray is clear per radiologist interpretation Received 20 mEq of IV potassium, 40 mEq of p.o. potassium, 1 g of IV magnesium Patient is alert and oriented, she was observed for 5 hours and was euglycemic throughout this encounter I asked patient to decrease her insulin to 10 units at night prior to bed and be reassessed on Tuesday by her primary care physician out of concern for hypogl ycemic episodes She is-potassium and magnesium for home She is also placed on Keflex for suspected urinary tract infection Patient is alert and oriented, I think she stable for discharge home at this time She is ambulatory with steady gait Return precautions reviewed and patient expressed understanding Medical Records Medical records reviewed: Yes I reviewed the patient's medical records. Lab Data Lab results reviewed: Yes I reviewed the patient's lab results. HPI General Date/Time Provider Initiated Documentation: 04/23/22 11:36 . HPI Narrative: This 81-year-old female with history of hypertension, diabetes, hypomagnesemia, cancer presents with reports of waking up on the floor beside her bed. She thinks she may have rolled out of bed. She states she was able to lift herself up from the bed and return to sleep. She has pain to the right of her neck and denies any additional pain complaints. She reports feeling fine yesterday. This morning she states she was sleeping on the couch as she was concerned of rolling out of her bed again. She states that her chemistry faculty member arrive and put she was out of it . Upon report EMS arrived and patient was sitting in the bathroom, they checked her blood sugar and found it to be 60. She received 500 of D10 and reportedly blood glucose of 211. In she has improved mentation. Denies history of coagulopathy. Denies any additional complaints at this time. Denies any history of seizures. Denies vision change. Related Data Home Medications Medication Instructions Recorded Confirmed levothyroxine 100 mcg tablet 100 mcg PO HS 08/03/13 04/23/22 insulin detemir U-100 100 unit/mL 50 unit subcut HS 04/09/19 04/23/22 (3 mL) subcutaneous pen (Levemir FlexTouch U-100 Insulin) anastrozole 1 mg tablet 1 mg PO DAILY 04/10/19 04/23/22 cyanocobalamin (vitamin B-12) 1,000 mcg IM [id number] 04/10/19 04/23/22 1,000 mcg/mL injection solution ibuprofen 800 mg tablet 800 mg PO TID PRN 04/10/19 04/23/22 venlafaxine 150 mg 150 mg PO DAILY 04/10/19 04/23/22 capsule,extended release 24 hr mirabegron 25 mg tablet,extended 25 mg PO DAILY #30 tabs 06/17/20 04/23/22 release 24 hr (Myrbetriq) ferrous gluconate 324 mg (38 mg 324 mg PO DAILY 06/03/21 04/23/22 iron) tablet solifenacin 5 mg tablet 5 mg PO DAILY 06/03/21 04/23/22 cephalexin 500 mg capsule 500 mg PO Q6H 7 days #28 caps 04/23/22 magnesium oxide 500 mg capsule 500 mg PO DAILY #7 caps 04/23/22 potassium chloride 20 mEq 40 meq PO DAILY 3 days #6 tabs 04/23/22 tablet,extended release(part/cryst) Previous Rx's Medication Instructions Recorded mirabegron 25 mg tablet,extended 25 mg PO DAILY #30 tabs 06/17/20 release 24 hr (Myrbetriq) cephalexin 500 mg capsule 500 mg PO Q6H 7 days #28 caps 04/23/22 magnesium oxide 500 mg capsule 500 mg PO DAILY #7 caps 04/23/22 potassium chloride 20 mEq 40 meq PO DAILY 3 days #6 tabs 04/23/22 tablet,extended release(part/cryst) Allergies Allergy/AdvReac Type Severity Reaction Status Date / Time penicillin G Allergy Intermediate Hives Unverified 10/21/21 13:06 morphine AdvReac Severe Nausea Unverified 10/21/21 13:06 General Stated Complaint: GenMedical YU: 3 Review of Systems All systems reviewed & are unremarkable except as noted in HPI and below PFSH All Active Problems (Updated 04/23/22 @ 16:02 by CARLOS Flores) Acute hypokalemia (Acute) Hypomagnesemia (Acute) Hypoglycemia (Acute) Fall (Acute) Acute UTI (Acute) Rotator cuff tear arthropathy of right shoulder (Acute) Contracture of right shoulder (Acute) Melanoma (Acute) Breast cancer (Chronic) Hypomagnesemia (Acute) Nausea and vomiting (Acute) Uncontrolled hypertension (Acute) Medical History Depression Hypothyroidism Peripheral neuropathy Urinary incontinence, mixed Vitamin B 12 deficiency Social History Smoking/Tobacco Use Status: Current every day Tobacco Type: cigarettes Smoking risk assessment performed?: Yes Alcohol Intake: current Alcohol Intake frequency: holidays/special occasions only Drug use: Never Substance use type: does not use Current gender identity: female Do you feel safe at home: Yes Do you feel safe in your relationship?: Yes Exam Const General: cooperative, comfortable and no acute distress HENMT Head: normal to inspection Mouth: oral mucosae normal Eyes Pupils: PERRL Resp Effort & Inspection: normal respiratory effort Auscultation: clear to auscultation bilaterally Cardio Rate: regular rate Rhythm: regular rhythm GI Other: non-tender abdominal exam Skin General skin exam: no rashes or lesions noted Neuro General: patient alert and patient oriented x3 Cranial Nerves: CN's II-XI intact bilaterally and tongue midline Cognition: normal cognition Speech: speech normal Gait: normal gait Motor: strength 5/5 throughout Sensory Exam: no sensory deficits noted Course Vital Signs Vital signs: Vital Signs Temperature 36.6 C 04/23/22 11:10 Pulse 75 04/23/22 11:10 Respiratory Rate 20 04/23/22 11:10 Blood Pressure 148/69 H 04/23/22 11:10 Pulse Oximetry 99 04/23/22 11:10 Temperature 36.6 C 04/23/22 11:10 Temperature Source Temporal Artery Scan 04/23/22 11:10 Pulse 75 04/23/22 11:10 Respiratory Rate 20 04/23/22 11:10 Respiratory Effort Non-Labored 04/23/22 11:17 Blood Pressure 148/69 H 04/23/22 11:10 Blood Pressure Position Supine 04/23/22 11:10 Pulse Oximetry 99 04/23/22 11:10 Oxygen Delivery Method Room Air 04/23/22 11:10 Oxygen Flow Rate 0 04/23/22 11:10 Pain Level 2 04/23/22 11:10
[2022-04-23 11:50] LABS: Abs Immature Grans 0.05 10^3/uL (0.0-0.06); Absolute Basophil Count 0.03 10^3/uL (0.0-0.2); Absolute Eosinophil Count 0.12 10^3/uL (0.0-0.7); Absolute Lymphocyte Count 0.97 10^3/uL (1.2-3.4); Absolute Monocyte Count 0.64 10^3/uL (0.1-0.8); Absolute Neutrophil Count 8.55 10^3/uL (1.2-6.7); Basophils % 0.3; Eosinophils % 1.2; HCT 41.8 % (36.0-46.0); Immature Grans % 0.5; Lymphocytes % 9.4; MCH 27.7 pg (27.0-33.0); MCHC 33.5 % (32.0-36.0); MCV 83 fL (80-95); MPV 10.6 fL (8.0-11.0); Monocytes % 6.2; Neutrophils % 82.4; Platelet Count 239 10^3/uL (130-400); RBC 5.05 10^6/uL (3.93-5.22); RDW 13.8 % (11.7-14.6); RDW-SD 41.3 fL; WBC 10.36 10^3/uL (4.4-10.8)
[2022-04-23 12:13] LABS: ETHANOL BLOOD < 3.0 mg/dL (<10); Hemoglobin A1C 7.1 % (<5.7)
[2022-04-23 12:19] LABS: Troponin I < 50 ng/L (<or=60)
[2022-04-23 12:22] LABS: ALT 31 U/L (14-59); AST 28 U/L (15-37); Albumin 3.3 g/dL (3.4-5.0); Alkaline Phosphatase 78 U/L (46-116); Anion Gap 0.6 mmol/L (3-11); BUN 15 mg/dL (7-18); Bilirubin, Total 0.6 mg/dL (0.2-1.0); CO2 30.4 mmol/L (21.0-32.0); CREATININE 0.6 mg/dL (0.55-1.02); Calcium 8.7 mg/dL (8.5-10.1); Chloride 103 mmol/L (98-107); Creatine Kinase 113 U/L (26-192); Estimated GFR 89.01 (mL/min/1.73m2); Glucose 127 mg/dL (74-106); Magnesium 1.7 mg/dL (1.8-2.4); Sodium 134 mmol/L (136-145); TSH (W/Ref FT4) 4.92 uIU/mL (0.36-3.74); Total Protein 6.4 g/dL (6.4-8.2)
[2022-04-23 12:26] LABS: Potassium 2.7 mmol/L (3.5-5.1)
[2022-04-23 12:43] LABS: FREE T4 0.98 ng/dL (0.76-1.46)
[2022-04-23] MEDS: POTASSIUM CHLORIDE 20 MEQ/100 ML BAG 50 MEQ IVPB (13:19)
[2022-04-23] MEDS: MAGNESIUM SULFATE 1 GM/100 ML BAG IVPB (13:20)
[2022-04-23] MEDS: Normal Saline 500 ML IV (13:57)
[2022-04-23 14:20] VITALS: BP 141/69; PULSE 86
[2022-04-23 15:20] LABS: Bilirubin Negative (Negative); Blood Trace-intact (Negative); Clarity Sl Cloudy (Clear); Glucose Negative (Negative); Ketones Negative (Negative); Leukocyte Esterase Negative (Negative); Nitrite Positive (Negative); Specific Gravity 1.015 (1.005-1.025); Urobilinogen 0.2 EU/dL (Up TO 0.2); pH 7.5 (5-8)
[2022-04-23 15:37] LABS: Bacteria Packed HPF (Negative); C & S Indicated? Yes; Crystals Negative HPF (Negative); Epithelial Cells Moderate HPF (Negative); Mucus Negative (Negative); RBC Negative HPF (0-2)
[2022-04-23] MEDS: Potassium Chloride 20 MEQ TABCR 40 MEQ PO (16:00)
--- NOTE | 2022-04-23 16:07 | NUR.NOTE ---
Nursing Note: PT info faxed to PCP for follow up next week for hypoglycemia & electrolite imbalance. Lacie, ED
[2022-04-23] MEDS: Cephalexin 500 MG CAP PO (16:08)
[2022-04-23] MEDS: Ibuprofen 400 MG TAB PO (16:23)
[2022-04-23 16:28] VITALS: BP 141/69; PULSE 86; RESP 18; O2SAT 98
== END 2022-04-23 16:28 | disposition home or self-care (01) ==
PROVIDERS: Emergency Provider Physician Assistant; PCP Internal Medicine
DX: E87.6 Hypokalemia (principal); E83.42 Hypomagnesemia; E11.649 Type 2 diabetes mellitus with hypoglycemia without coma; N39.0 Urinary tract infection, site not specified; I10 Essential (primary) hypertension; G89.11 Acute pain due to trauma; M54.2 Cervicalgia; F17.210 Nicotine dependence, cigarettes, uncomplicated; Z79.4 Long term (current) use of insulin; W19.XXXA Unspecified fall, initial encounter
CPT/HCPCS: 36415; 70496; 70498; 80053; 82550; 87077; 93005; 96365; 96366; 96367; 99285; 71046; 72125; 80320; 81003; 81015; 83036; 83735; 84439; 84443; 84484; 85025; 87086; 87186; 93010; J3475; J3480

== ENCOUNTER 2022-04-26 11:30 | Emergency (ER) | payer MEDICARE, BC, SELFPAY ==
[2022-04-26 11:31] VITALS: BP 139/74; TEMP 36.3; O2SAT 97
--- NOTE | 2022-04-26 11:55 | ED.GENADUL_ITS ---
Discharge Plan Disposition Patient Disposition: HOME Condition: Stable Discharge Details Clinical Impression: Hypoglycemia Primary Care Provider: Garcia Gilliland ED Provider: Reji Pagan Home Meds and New Rx's Prescriptions: Continued solifenacin 5 mg tablet 5 mg PO DAILY levothyroxine 100 MCG tablet 100 mcg PO DAILY Levemir FlexTouch U-100 Insuln 100 unit/mL (3 mL) Insulin Pen 55 unit SUBCUT HS ibuprofen 800 mg Tablet 800 mg PO PRN PRN Label Comments: from pcp med list cyanocobalamin (vitamin B-12) 1,000 mcg/mL Solution 1,000 mcg IM [id number] magnesium oxide 500 mg capsule 500 mg PO DAILY Qty: 7 0RF Discharge Instructions Instructions: Hypoglycemia in Adolescents with Diabetes (ED) Additional Instructions: try to eat first thing in the morning when you wake up follow up with your primary care provider as soon as possible, i've placed you on our follow up list to help expedite this if you feel more ill, have fevers or difficulty breathing return to the emergency department Medical Decision Making 81 yo female on levemire 55units at night for years per patient, was seen in the ED last week after hypoglycemic episode and started on cephalexin for uti, comes in after an episode of altered mental status. She states she has been feeling well, denies urinary symptoms, fevers, chills, general weakness or fatigue. She took her nightly insulin last night and woke up this morning, did not eat which she states she normally does, and then was found by a relative lethargic. EMs arrived and her glucose was 50, was given oral glucose and mental status improved, she arrives caox4 without complaints. She has clear speech, no signs of trauma, no focal deficits, no abdominal tenderness. Given rapid improvement in symptoms after oral glucose seems hypoglycemia due to not eating this morning. No symptoms to suggest sepsis and appears well, and given lack of symptoms now do not feel any imaging indicated, will check electrolytes and cbc and reassess. mild leukocytosis to 12 otherwise unremarkable, remains stable and asymptomatic. Stable for d/c, met with care management to set up home health nursing and pt to go over medications and assess safety of house she lives in and provide education on strengthening exercises. She will f/u with pcp, stressed importance of eating first thing in the morning, return precautions given Differential Diagnosis Differential Diagnosis: insulin reaction, lack of food, electrolyte abnormality Medical Records Medical records reviewed: Yes I reviewed the patient's medical records. HPI General Mode of arrival: ambulatory . Date/Time Provider Initiated Documentation: 04/26/22 11:33 . Limitations to Documentation: no limitations . Information obtained by: patient . History of Present Illness 81 year old F presents to the emergency department with the chief complaint of altered mental status, Patient started experiencing this unknown and it has been now resolved. other things that improve symptom(s), (glucose) Patient notes denies chest pain, fever/chills, nausea/vomiting and shortness of breath. Related Data Home Medications Medication Instructions Recorded Confirmed levothyroxine 100 mcg tablet 100 mcg PO DAILY 08/03/13 04/26/22 insulin detemir U-100 100 unit/mL 55 unit subcut HS 04/09/19 04/26/22 (3 mL) subcutaneous pen (Levemir FlexTouch U-100 Insulin) cyanocobalamin (vitamin B-12) 1,000 mcg IM [id number] 04/10/19 04/26/22 1,000 mcg/mL injection solution ibuprofen 800 mg tablet 800 mg PO PRN PRN 04/10/19 04/26/22 solifenacin 5 mg tablet 5 mg PO DAILY 06/03/21 04/26/22 magnesium oxide 500 mg capsule 500 mg PO DAILY #7 caps 04/23/22 04/26/22 Previous Rx's Medication Instructions Recorded magnesium oxide 500 mg capsule 500 mg PO DAILY #7 caps 04/23/22 Allergies Allergy/AdvReac Type Severity Reaction Status Date / Time penicillin G Allergy Intermediate Hives Unverified 04/26/22 13:18 morphine AdvReac Severe Nausea Unverified 04/26/22 13:18 General Stated Complaint: Diabetes YU: 3 Review of Systems All systems reviewed & are unremarkable except as noted in HPI and below Constitutional Constitutional: Denies chills and Denies fever(s) Cardiovascular Cardiovascular: Denies chest pain and Denies dyspnea Respiratory Respiratory: Denies cough and Denies dyspnea Gastrointestinal Gastrointestinal: Denies abdominal pain, Denies nausea and Denies vomiting Genitourinary Genitourinary: Denies dysuria PFSH All Active Problems (Updated 04/26/22 @ 13:22 by Reji Pagan MD) Acute hypokalemia (Acute) Hypomagnesemia (Acute) Hypoglycemia (Acute) Fall (Acute) Acute UTI (Acute) Rotator cuff tear arthropathy of right shoulder (Acute) Contracture of right shoulder (Acute) Melanoma (Acute) Breast cancer (Chronic) Hypomagnesemia (Acute) Nausea and vomiting (Acute) Uncontrolled hypertension (Acute) Medical History Depression Hypothyroidism Peripheral neuropathy Urinary incontinence, mixed Vitamin B 12 deficiency Social History Smoking/Tobacco Use Status: Current every day Tobacco Type: cigarettes Smoking risk assessment performed?: Yes Alcohol Intake: current Alcohol Intake frequency: holidays/special occasions only Drug use: Never Substance use type: does not use Current gender identity: female Do you feel safe at home: Yes Do you feel safe in your relationship?: Yes Exam Const General: no acute distress Orientation: alert HENMT Head: normal to inspection Ears: external ears normal General nose exam: external nose normal Mouth: moist mucous membranes Eyes General: appearance normal, both eyes and all related structures Neck Neck: normal visual inspection Resp Effort & Inspection: normal respiratory effort and able to speak in complete sentences Cardio Rate: regular rate GI Palpation: soft and nontender Skin General skin exam: no rashes or lesions noted Neuro General: patient alert and patient oriented x3 Extrem General: normal to inspection Psych Mental Status: mental status grossly normal Course Vital Signs Vital signs: Vital Signs Temperature 36.3 C L 04/26/22 11:31 Blood Pressure 139/74 04/26/22 11:31 Pulse Oximetry 97 04/26/22 11:31 Temperature 36.3 C L 04/26/22 11:31 Temperature Source Temporal Artery Scan 04/26/22 11:31 Respiratory Effort Non-Labored 04/26/22 11:48 Blood Pressure 139/74 04/26/22 11:31 Blood Pressure Position Supine 04/26/22 11:31 Pulse Oximetry 97 04/26/22 11:31 Oxygen Delivery Method Room Air 04/26/22 11:31 Oxygen Flow Rate 0 04/26/22 11:31
--- NOTE | 2022-04-26 12:16 | CMPROGNOTE_ITS ---
- If Service Date Differs Date of service: 04/26/22 Time of Service: 12:16 Care Management Progress Note Umu is an 81 year old female who lives alone in [place], she was brought to the ER today via EMS. GENA spoke with Daisha and she is willing to have New RN/PT/OT and [employer] services through [facility]. CM faxed orders and a face to face. Additionally, Umu is unable to leave her home without assistance and it's a taxing effort to leave the house due to increased weakness . GENA notified [facility]. Daisha is also interested in a referral to [facility]. She has been considering getting [facility] for some time know, because cooking for herself is becoming a challenge. GENA sent referral to [facility].
[2022-04-26 12:23] LABS: Abs Immature Grans 0.05 10^3/uL (0.0-0.06); Absolute Basophil Count 0.05 10^3/uL (0.0-0.2); Absolute Lymphocyte Count 0.77 10^3/uL (1.2-3.4); Absolute Monocyte Count 0.67 10^3/uL (0.1-0.8); Basophils % 0.4; Eosinophils % 0.8; HCT 45.1 % (36.0-46.0); HGB 15.2 g/dL (11.2-15.7); Immature Grans % 0.4; Lymphocytes % 6.3; MCHC 33.7 % (32.0-36.0); MCV 83 fL (80-95); MPV 10.5 fL (8.0-11.0); Monocytes % 5.5; Neutrophils % 86.6; Platelet Count 288 10^3/uL (130-400); RBC 5.43 10^6/uL (3.93-5.22); RDW 14.1 % (11.7-14.6); RDW-SD 42.4 fL; WBC 12.18 10^3/uL (4.4-10.8)
[2022-04-26 12:24] LABS: Absolute Neutrophil Count 10.55 10^3/uL (1.2-6.7)
[2022-04-26 12:29] LABS: ALT 35 U/L (14-59); AST 35 U/L (15-37); Albumin 3.6 g/dL (3.4-5.0); Alkaline Phosphatase 82 U/L (46-116); Anion Gap 4.1 mmol/L (3-11); BUN 23 mg/dL (7-18); Bilirubin, Total 0.6 mg/dL (0.2-1.0); CO2 31.9 mmol/L (21.0-32.0); CREATININE 0.7 mg/dL (0.55-1.02); Calcium 9.2 mg/dL (8.5-10.1); Chloride 105 mmol/L (98-107); Estimated GFR 85.76 (mL/min/1.73m2); Glucose 107 mg/dL (74-106); Potassium 4.4 mmol/L (3.5-5.1); Sodium 141 mmol/L (136-145); Total Protein 7.1 g/dL (6.4-8.2)
[2022-04-26 14:05] VITALS: BP 130/70; PULSE 78; RESP 16; TEMP 36.8; O2SAT 98
--- NOTE | 2022-04-26 16:12 | NUR.NOTE ---
Nursing Note: Referral faxed to PCP for hypoglycemia x 2 ED visits to be seen SEGUN.
== END 2022-04-26 13:52 | disposition home or self-care (01) ==
LOC: ER 13:29
PROVIDERS: Emergency Provider Emergency Medicine; PCP Internal Medicine
DX: E16.2 Hypoglycemia, unspecified (principal); R41.82 Altered mental status, unspecified; D72.829 Elevated white blood cell count, unspecified; F17.210 Nicotine dependence, cigarettes, uncomplicated; Z79.4 Long term (current) use of insulin
CPT/HCPCS: 36415; 80053; 99284; 85025

== ENCOUNTER 2022-07-10 19:20 | Emergency (ER) | payer MEDICARE, BC, SELFPAY ==
[2022-07-10] VITALS (38 sets, daily range): BP systolic 82–126; BP diastolic 46–71; PULSE 62–121; RESP 9–35; TEMP 37; O2SAT 95
--- NOTE | 2022-07-10 19:15 | RT.EKG_ITS ---
APPROVED REPORT Exam: Resting ECG Reason for Exam: dizzy Patient Location: E HR:113 bpm ECG Measurements Heart Rate [address] 124 P 0 QRSd 127 QRS -71 QT 440 T 67 QTc 603 Conclusion Sinus tachycardia...rate> 99 Right bundle branch block...QRSd>120, terminal axis(90,270) Left ventricular hypertrophy...multiple LVH criteria ST elevation suggests acute pericarditis...ST >0.10mV, ant/lat/inf no stemi
--- NOTE | 2022-07-10 19:34 | W.ED.GENAD ---
Discharge Plan Discharge Details Chief Complaint: Abd Prob Primary Care Provider: Garcia Gilliland ED Provider: Erik Villasenor Home Meds and New Rx's Prescriptions: No Action solifenacin 5 mg tablet 5 mg PO DAILY levothyroxine 100 MCG tablet 100 mcg PO DAILY Levemir FlexTouch U-100 Insuln 100 unit/mL (3 mL) Insulin Pen 55 unit SUBCUT HS ibuprofen 800 mg Tablet 800 mg PO PRN PRN Label Comments: from pcp med list cyanocobalamin (vitamin B-12) 1,000 mcg/mL Solution 1,000 mcg IM [id number] magnesium oxide 500 mg capsule 500 mg PO DAILY Qty: 7 0RF metformin 500 mg tablet Label Comments: TAKE 2 TABLETS BY MOUTH TWICE DAILY Medical Decision Making This is an 82-year-old female, past medical history of depression, hypothyroidism, urinary incontinence, diabetes, hypomagnesemia, hypertension, presenting to the ER for generalized weakness, not feeling well, nausea and vomiting that began around 1630 this evening, 3 episodes of vomiting total. Intermittent nausea. Clinically she appears slightly dry, tachycardia at 112. Plan to obtain IV access, routine screening laboratory values and given her age and comorbidities, will obtain EKG and troponin. Will provide IV fluid and Zofran. Laboratory values reveal mild nonspecific leukocytosis of 12.30. No evidence of anemia or thrombocytopenia. Sodium, potassium, chloride,, dioxide, anion gap, renal function all unremarkable. Glucose 302. Magnesium 1.5. Total bili 1.4. LFTs otherwise unremarkable. Initial troponin less than 50. Lipase 35. TSH 2.66. Flu, COVID, RSV all negative. Will provide another liter of IV fluid. Heart rate now currently 98. We will provide 1 g IV magnesium. Given her glucose of 302, would like to provide her with her nightly dose of metformin and Lantus. No evidence of DKA. Patient declines Lantus or metformin and states that she has she is at home and would prefer to take them there when discharged home so that she can take her regular medication and not be charged extra for the medication here. Will obtain straight cath urine as she is incontinent. Given her leukocytosis, nausea and vomiting, will obtain CT imaging of her abdomen and pelvis with IV contrast. Unfortunately I have no surgical history regarding this patient. Total bili is 1.4. Patient believes that she had a cholecystectomy many years ago. Chest x-ray unremarkable Urinalysis reveals 80 ketones, she is receiving 2 L IV fluid. Urine nitrite positive, leuk esterase moderate. Awaiting micro. Micro reveals 5-10 red cells, greater than 50 white cells. Many bacteria. I reviewed her most recent culture and sensitivity on 04-26-2022. She 2 separate E. coli colony counts were obtained. Sensitive to ceftriaxone, Macrobid, Bactrim. Plan to provide IV Rocephin now and will provide prescription of Keflex. Awaiting CT abdomen and pelvis and delta troponin. We will also p.o. challenge once CT is completed and if unremarkable. Patient returned from CT. Heart rate of 92. She does endorse a mild headache. We will provide 650 p.o. Tylenol and p.o. challenge. She is agreeable to awaiting a delta troponin. Patient states that she feels overall better when compared to initial presentation and would like to go home if possible. Patient was able to tolerate p.o. intake. CT imaging. Reveals findings suspicious of cystitis, also concern for potential pyelonephritis. Potential colitis infection versus inflammatory process. Cholecystectomy. Portal vein is prominent, portal hypertension cannot be excluded. Spleen is mildly heterogeneous with small cystic changes, ultrasound can be considered for further evaluation. This documentation was generated using [employer] dictation system, please disregard any oddities of phrase or misspellings. Medical Records Medical records reviewed: Yes I reviewed the patient's medical records. Imaging Data Radiologic Study: Attestation: I personally reviewed and interpreted this imaging study as follows: Imaging: X-Ray Radiologist's impression: PROCEDURE INFORMATION: Exam: XR Chest Exam date and time: 07/10/2022 8:00 PM Age: 82 years old Clinical indication: Other: Weakness TECHNIQUE: Imaging protocol: Radiologic exam of the chest. Views: 1 view. COMPARISON: CR XR CHEST 2V PA LATERAL 04/23/2022 1:13 PM FINDINGS: Lungs: Unremarkable. No consolidation. Pleural spaces: Unremarkable. No pleural effusion. No pneumothorax. Heart/Mediastinum: Unremarkable. No cardiomegaly. Bones/joints: Unremarkable. IMPRESSION: No acute findings. Radiologic Study #2: Attestation: I personally reviewed and interpreted this imaging study as follows: Imaging: CT Scan Radiologist's impression: PROCEDURE INFORMATION: Exam: CT Abdomen And Pelvis With Contrast Exam date and time: 07/10/2022 9:07 PM Age: 82 years old Clinical indication: Other: N/v, bili 1.4, wbc12.3 TECHNIQUE: Imaging protocol: Computed tomography of the abdomen and pelvis with contrast. Contrast material: 350; Contrast volume: 100 ml; Contrast route: INTRAVENOUS (IV); COMPARISON: CT ABDOMEN PELVIS W 04/10/2019 1:19 PM FINDINGS: Heart: Mild pericardial effusion. Diaphragm: Small hiatal hernia. Liver: There are postsurgical changes in the left lobe of the liver. Mild hepatic steatosis. Focal linear hypodensity at the site of postsurgical change along the falciform ligament is unchanged and probably due to the scar (13 series 4). Gallbladder and bile ducts: There is cholecystectomy. Pancreas: Normal. No ductal dilation. Spleen: Heterogeneous enhancement of spleen, at least in part related to phase of the contrast enhancement. There are multiple sub 5 mm cystic change within the spleen, new since previous exam. For example 4 mm hypodensity in the posteroinferior spleen, too small to be characterized (28 series 4). Additionally, spleen is slightly bulkier than before and is 13 cm in length, previously 12 cm in length. Adrenal glands: Normal. No mass. Kidneys and ureters: There is 1.9 cm cyst in the posterosuperior left kidney. Mild left hydroureter and extrarenal pelvis, possibly physiologic. There is cortical thinning or scarring in the left lower pole kidney similar to the previous exam. There is cortical hypodensity in the left upper pole kidney (28 MICA, VALOseries 4, 36 series 7) with blurriness of the corticomedullary interface. Mild urothelial enhancement of the left renal pelvis and left ureter noted. There is no obstructive stone. Stomach and bowel: Under distension, mucosal enhancement of the ascending and transverse colon suspicious of colitis. There are foci of diverticulosis in the large bowel without focal acute inflammation. No bowel obstruction. Appendix: No evidence of appendicitis. Intraperitoneal space: . No free air. No significant fluid collection. Vasculature: Portal veins are prominent measuring up to 1.9 cm in length suspicious of portal hypertension. Lymph nodes: Unremarkable. No enlarged lymph nodes. Urinary bladder: Urinary bladder demonstrate mucosal thickening and mild perivesical stranding consistent with cystitis. Reproductive: Uterus has lobulated contour with foci of calcifications noted consistent with fibroid. Bones/joints: Visualized bones are demineralized. There is mild dextroscoliosis of the lumbar spine. Multilevel disc degenerative changes noted. There is mild loss of height of superior endplate of T12, unchanged. Soft tissues: Small fat containing umbilical hernia. Small umbilical hernia. IMPRESSION: 1. Focal hypodensity in the left upper pole kidney with blurriness of the cortico medullary interface and mild urothelial enhancement in the left renal pelvis and left ureter suspicious of urine tract infection and pyelonephritis. Additionally, urinary bladder demonstrates mucosal thickening suspicious of cystitis. 2. Mucosal thickening and enhancement of the ascending and transverse colon suspicious of colitis, infectious or inflammatory process. 3. Cholecystectomy. No intra or extrahepatic biliary dilatation. 4. Postsurgical changes in the liver with left lobe lobectomy. Focal linear hypodensity at the surgical change at the lobectomy site is unchanged and likely due to the previous scar. 5. Portal vein is prominent , portal hypertension cannot be excluded.. 6. Spleen is mildly heterogeneous with small cystic changes within the spleen too small to be characterized on CT, new since previous exam, in part related to the phase of the contrast. Additional spleen has slightly enlarged since previous exam, possibly reactive versus sequela of portal hypertension. Ultrasound can be considered for further evaluation. Lab Data Lab results reviewed: Yes I reviewed the patient's lab results. Labs: 07/10/22 20:46 Urine - Reflex from Ua Urine Culture - Pending Laboratory Tests Range/Units 07/10/22 07/10/22 07/10/22 19:30 19:30 19:31 WBC (4.4-10.8) 10^3/uL RBC (3.93-5.22) 10^6/uL Hgb (11.2-15.7) g/dL Hct (36.0-46.0) % MCV (80-95) fL MCH (27.0-33.0) pg MCHC (32.0-36.0) % RDW (11.7-14.6) % Plt Count (130-400) 10^3/uL MPV (8.0-11.0) fL Immature Gran % Neutrophils % Lymphocytes % Monocytes % Eosinophils % Basophils % Nucleated RBC % (0.0-0.3) % Absolute Neutrophils (1.2-6.7) 10^3/uL Absolute Lymphocytes (1.2-3.4) 10^3/uL Absolute Monocytes (0.1-0.8) 10^3/uL Absolute Eosinophils (0.0-0.7) 10^3/uL Absolute Basophils (0.0-0.2) 10^3/uL Sodium (136-145) mmol/L 139 Potassium (3.5-5.1) mmol/L 3.9 Chloride (98-107) mmol/L 103 Carbon Dioxide (21.0-32.0) mmol/L 26.7 Anion Gap (3-11) mmol/L 9.3 BUN (7-18) mg/dL 17 Creatinine (0.55-1.02) mg/dL 0.8 Est GFR (CKD-EPI 2020) (mL/min/1.73m2) 72.61 Glucose (74-106) mg/dL 302 H Calcium (8.5-10.1) mg/dL 9.4 Magnesium (1.8-2.4) mg/dL 1.5 L Total Bilirubin (0.2-1.0) mg/dL 1.4 H AST (15-37) U/L 27 ALT (14-59) U/L 33 Alkaline Phosphatase (46-116) U/L 91 Troponin I (<or=60) ng/L < 50 Total Protein (6.4-8.2) g/dL 7.4 Albumin (3.4-5.0) g/dL 3.7 Lipase (73-393) U/L 35 TSH (0.36-3.74) uIU/mL 2.66 Urine Color (Yellow) Urine Clarity (Clear) Urine pH (5-8) Ur Specific [place] (1.005-1.025) Urine Protein (Negative) mg/dL Urine Ketones (Negative) mg/dL Urine Blood (Negative) Urine Nitrite (Negative) Urine Bilirubin (Negative) Urine Urobilinogen (Up TO 0.2) EU/dL Ur Leukocyte Esterase (Negative) Urine RBC (0-2) HPF Urine WBC (0-5) HPF Ur Epithelial Cells (Negative) HPF Urine Crystals (Negative) HPF Urine Bacteria (Negative) HPF Urine Casts (Negative) LPF Urine Mucus (Negative) Ur Culture Indicated? Urine Glucose (Negative) mg/dL COVID-19 Source Nasopharynx SARS-CoV-2 (PCR) (Negative) Negative Influenza Type A (PCR) (Negative) Negative Influenza Type B (PCR) (Negative) Negative RSV (PCR) (Negative) Negative Range/Units 07/10/22 07/10/22 19:31 20:46 WBC (4.4-10.8) 10^3/uL 12.30 H RBC (3.93-5.22) 10^6/uL 5.41 H Hgb (11.2-15.7) g/dL 14.9 Hct (36.0-46.0) % 45.0 MCV (80-95) fL 83 MCH (27.0-33.0) pg 27.5 MCHC (32.0-36.0) % 33.1 RDW (11.7-14.6) % 13.7 Plt Count (130-400) 10^3/uL 239 MPV (8.0-11.0) fL 10.9 Immature Gran % 0.3 Neutrophils % 89.4 Lymphocytes % 2.1 Monocytes % 7.8 Eosinophils % 0.2 Basophils % 0.2 Nucleated RBC % (0.0-0.3) % 0.0 Absolute Neutrophils (1.2-6.7) 10^3/uL 11.00 H Absolute Lymphocytes (1.2-3.4) 10^3/uL 0.26 L Absolute Monocytes (0.1-0.8) 10^3/uL 0.96 H Absolute Eosinophils (0.0-0.7) 10^3/uL 0.02 Absolute Basophils (0.0-0.2) 10^3/uL 0.02 Sodium (136-145) mmol/L Potassium (3.5-5.1) mmol/L Chloride (98-107) mmol/L Carbon Dioxide (21.0-32.0) mmol/L Anion Gap (3-11) mmol/L BUN (7-18) mg/dL Creatinine (0.55-1.02) mg/dL Est GFR (CKD-EPI 2020) (mL/min/1.73m2) Glucose (74-106) mg/dL Calcium (8.5-10.1) mg/dL Magnesium (1.8-2.4) mg/dL Total Bilirubin (0.2-1.0) mg/dL AST (15-37) U/L ALT (14-59) U/L Alkaline Phosphatase (46-116) U/L Troponin I (<or=60) ng/L Total Protein (6.4-8.2) g/dL Albumin (3.4-5.0) g/dL Lipase (73-393) U/L TSH (0.36-3.74) uIU/mL Urine Color (Yellow) Yellow Urine Clarity (Clear) Cloudy Urine pH (5-8) 5.5 Ur Specific [place] (1.005-1.025) 1.020 Urine Protein (Negative) mg/dL 100 H Urine Ketones (Negative) mg/dL 80 H Urine Blood (Negative) Small H Urine Nitrite (Negative) Positive H Urine Bilirubin (Negative) Negative Urine Urobilinogen (Up TO 0.2) EU/dL 2.0 H Ur Leukocyte Esterase (Negative) Moderate H Urine RBC (0-2) HPF 5-10 H Urine WBC (0-5) HPF >50 H Ur Epithelial Cells (Negative) HPF Few Urine Crystals (Negative) HPF Negative Urine Bacteria (Negative) HPF Many Urine Casts (Negative) LPF 3-5 Hyaline Urine Mucus (Negative) Moderate Ur Culture Indicated? Yes Urine Glucose (Negative) mg/dL 100 COVID-19 Source SARS-CoV-2 (PCR) (Negative) Influenza Type A (PCR) (Negative) Influenza Type B (PCR) (Negative) RSV (PCR) (Negative) ECG Data Attestation: I personally reviewed and interpreted this ECG (s) as follows: Interpretation: Please see official report by Dr. Bhatia. Sinus tachycardia, ventricular rate of 113. Right bundle branch block. Nonspecific ST changes, appear in previous EKG. No STEMI. HPI General Mode of arrival: wheelchair. Date/Time Provider Initiated Documentation: 07/10/22 19:21. Limitations to Documentation: no limitations. Information obtained by: patient. HPI Narrative: This is an 82-year-old female with a past medical history that includes hypertension, diabetes, thyroid disease, depression, presented to ER for evaluation of simply not feeling well, generalized weakness, nausea, vomiting x3 since about 1630 today. Patient is concerned for dehydration. She took her morning medications but did not take her evening medications. She denies any pain whatsoever. Denies recent trauma or sick contacts. Related Data Home Medications Medication Instructions Recorded Confirmed levothyroxine 100 mcg tablet 100 mcg PO DAILY 08/03/13 07/10/22 insulin detemir U-100 100 unit/mL 55 unit subcut HS 04/09/19 04/26/22 (3 mL) subcutaneous pen (Levemir FlexTouch U-100 Insulin) cyanocobalamin (vitamin B-12) 1,000 mcg IM [id number] 04/10/19 04/26/22 1,000 mcg/mL injection solution ibuprofen 800 mg tablet 800 mg PO PRN PRN 04/10/19 04/26/22 solifenacin 5 mg tablet 5 mg PO DAILY 06/03/21 07/10/22 magnesium oxide 500 mg capsule 500 mg PO DAILY #7 caps 04/23/22 04/26/22 metformin 500 mg tablet tab 07/10/22 07/10/22 Previous Rx's Medication Instructions Recorded magnesium oxide 500 mg capsule 500 mg PO DAILY #7 caps 04/23/22 Allergies Allergy/AdvReac Type Severity Reaction Status Date / Time penicillin G Allergy Intermediate Hives Unverified 04/26/22 13:18 morphine AdvReac Severe Nausea Unverified 04/26/22 13:18 General Stated Complaint: Abd Prob YU: 3 Review of Systems Constitutional Constitutional: Denies fatigue, Denies fever(s) and Reports weakness (Generalized) Cardiovascular Cardiovascular: Denies chest pain and Denies dyspnea Respiratory Respiratory: Denies cough and Denies dyspnea Gastrointestinal Gastrointestinal: Denies abdominal pain, Denies constipation, Denies diarrhea, Reports nausea and Reports vomiting Genitourinary Genitourinary: Denies dysuria Musculoskeletal Musculoskeletal: Denies myalgias Integumentary/Breasts Skin/Breast: Denies rash Neurologic Neurologic: Reports weakness (Generalized) Endocrine Endocrine: Denies fatigue Hematologic/Lymphatic Hematologic/Lymphatic: Denies easy bleeding and Denies easy bruising PFSH All Active Problems Rotator cuff tear arthropathy of right shoulder (Acute) Contracture of right shoulder (Acute) Melanoma (Acute) Breast cancer (Chronic) Hypomagnesemia (Acute) Nausea and vomiting (Acute) Uncontrolled hypertension (Acute) Medical History Depression Hypothyroidism Peripheral neuropathy Urinary incontinence, mixed Vitamin B 12 deficiency Social History Smoking/Tobacco Use Status: Current every day Tobacco Type: cigarettes Smoking risk assessment performed?: Yes Alcohol Intake: current Alcohol Intake frequency: holidays/special occasions only Drug use: Never Substance use type: does not use Current gender identity: female Do you feel safe at home: Yes Do you feel safe in your relationship?: Yes Exam Const General: cooperative, healthy appearing, comfortable and no acute distress Orientation: alert and awake [facility] Head: normal to inspection, normocephalic and atraumatic Face and sinus: normal facial exam Mouth: moist mucous membranes abnormal (Slightly dry) Throat: posterior oropharynx normal Eyes General: appearance normal, both eyes and all related structures Conjunctivae: conjunctivae normal Neck Neck: normal visual inspection, full ROM, no meningeal signs, trachea midline and supple Resp Effort & Inspection: normal respiratory effort and able to speak in complete sentences Auscultation: clear to auscultation bilaterally Cardio Rate: tachycardic (112) Rhythm: regular rhythm GI Inspection: normal to inspection Palpation: soft, not firm, no guarding, no pulsatile masses and nontender Auscultation: normal bowel sounds Back/Spine/Pelvis Back: no CVA tenderness and No back tenderness Skin General skin exam: no rashes or lesions noted Neuro General: patient alert, patient awake, moves all extremities and no focal motor deficits Cognition: normal cognition Speech: speech normal Gait: normal gait Sensory Exam: no sensory deficits noted Extrem General: normal to inspection, full ROM and capillary refill normal Psych Appearance: grossly normal Mental Status: mental status grossly normal Course Vital Signs Vital signs: Vital Signs Temperature 37 C 07/10/22 19:25 Pulse 121 H 07/10/22 19:25 Respiratory Rate 24 07/10/22 19:25 Blood Pressure 126/71 07/10/22 19:25 Pulse Oximetry 95 07/10/22 19:25 Temperature 37 C 07/10/22 19:25 Temperature Source Temporal Artery Scan 07/10/22 19:25 Pulse 121 H 07/10/22 19:25 Respiratory Rate 24 07/10/22 19:25 Blood Pressure 126/71 07/10/22 19:25 Pulse Oximetry 95 07/10/22 19:25 Oxygen Delivery Method Room Air 07/10/22 19:25 Oxygen Flow Rate 0 07/10/22 19:25 Pain Level 0 07/10/22 19:25
[2022-07-10 19:39] LABS: Abs Immature Grans 0.04 10^3/uL (0.0-0.06); Absolute Basophil Count 0.02 10^3/uL (0.0-0.2); Absolute Eosinophil Count 0.02 10^3/uL (0.0-0.7); Absolute Lymphocyte Count 0.26 10^3/uL (1.2-3.4); Absolute Monocyte Count 0.96 10^3/uL (0.1-0.8); Basophils % 0.2; Eosinophils % 0.2; HGB 14.9 g/dL (11.2-15.7); Immature Grans % 0.3; Lymphocytes % 2.1; MCH 27.5 pg (27.0-33.0); MCHC 33.1 % (32.0-36.0); MCV 83 fL (80-95); MPV 10.9 fL (8.0-11.0); Monocytes % 7.8; Neutrophils % 89.4; Platelet Count 239 10^3/uL (130-400); RBC 5.41 10^6/uL (3.93-5.22); RDW 13.7 % (11.7-14.6); RDW-SD 41.6 fL
[2022-07-10] MEDS: Ondansetron 4 MG/2 ML VIAL IVP (19:39)
[2022-07-10] MEDS: Normal Saline 1,000 ML 1000 ML IV (19:44)
--- NOTE | 2022-07-10 19:45 | DI.RAD_ITS ---
Exam(s) XR PORTABLE CHEST AP EXAM: XR PORTABLE CHEST AP CLINICAL HISTORY: weakness. TECHNIQUE: 2D digital imaging was performed. COMPARISON: CR XR CHEST 2V PA LATERAL from 04/23/2022 FINDINGS: Single AP portable view. Heart size is upper normal. The mediastinum is not widened. Lungs are clear. No infiltrates nor obvious pleural effusions. IMPRESSION: No acute pulmonary findings on this single AP portable view of the chest. DATA REPOSITORY: RADIATION DOSE DELIVERED:
[2022-07-10 20:00] LABS: Magnesium 1.5 mg/dL (1.8-2.4); Troponin I < 50 ng/L (<or=60)
--- NOTE | 2022-07-10 20:00 | DI.CT_ITS ---
Exam(s) CT ABDOMEN PELVIS W EXAM: CT ABDOMEN PELVIS W CLINICAL HISTORY: N/V, bili 1.4, wbc 12.3. TECHNIQUE: Imaging Protocol: Axial computed tomography images with coronal and sagittal reformatted images were created and reviewed CONTRAST MATERIAL: Intravenous: Omnipaque-350 100cc Oral: None COMPARISON: CT CT CERVICAL SPINE WO from 04/23/2022 FINDINGS: VISUALIZED LUNGc BASES: No nodules nor pleural effusions evident. There is a pericardial effusion. Thickness is 7 millimeters. ABDOMEN: There is no ascites. Small hiatal hernia noted. Some circumferential edema noted in the duodenum. LIVER: The left hepatic lobe is surgically absent. There is no abnormal fluid collection along the s uture line in the liver. No significant focal findings in the right hepatic lobe nor dilatation of i ntrahepatic ducts. GALLBLADDER/BILIARY: The gallbladder is surgically absent. CBD is not dilated. PANCREAS: No evidence of pancreatic mass nor dilatation of the pancreatic duct. SPLEEN: Mild splenomegaly. Few benign-appearing subtle hypodensities are noted in the spleen. Splen ic and portal veins are patent. Superior mesenteric vein is patent. Portal vein diameter is mildly prominent measuring 1.6 cm. No evidence of portal vein thrombosis. No prominent collaterals. ADRENALS: Unremarkable. KIDNEYS:There is a 1.8 x 1.7 cm cyst in the superior pole of the left kidney. Just below this level is an area of abnormal enhancement in the posterior cortex of the left kidney which is suspicious for pyelonephritis. There is another smaller 7 millimeter cortical cyst in the medial cortex of the lef t kidney with some adjacent subcapsular fluid. There is abnormal uroepithelial enhancement in the left renal pelvis and along the left ureter which may be related to infection. There is also uniformly abnormal appearance of the bladder wall which i s thickened and enhances, consistent with probable cystitis. There is no gas in the nondistended madhuri dder wall. ABDOMINAL AORTA: Calcified but not enlarged. Common iliac arteries could also calcified. LYMPH NODES:There is no retroperitoneal nor paraaortic adenopathy. ABDOMINAL WALL: No evidence of significant anterior abdominal wall nor inguinal hernia. GI: The cecum is mobile. It is also mildly distended. Subtle possible colitis pattern. There is al so diverticulosis of the entire left side of the colon but without obvious acute diverticulitis. PELVIS: GI: No evidence of appendicitis.No evidence of sigmoid diverticulitis. LYMPH NODES: There is no intrapelvic nor inguinal adenopathy. REPRODUCTIVE: Enlarged fibroid uterus. No adnexal masses. No free fluid in the pelvis. URINARY BLADDER: Diffusely thickened and enhancing bladder wall consistent with cystitis. OSSEOUS: Healed left-sided rib fractures. No acute fractures evident. Chronic appearing height loss of T12. Multilevel chronic degenerative disc disease. IMPRESSION: 1. Findings in the upper pole region of the left kidney as well as left-sided uroepithelial enhanceme nt and diffuse cystitis bladder in the bladder. Suspect although this is infectious including cystit is and pyelonephritis. 2. Left hepatic lobe is surgically absent. Gallbladder also surgically absent. Biliary tree is not dilated. 3. Spleen is slightly enlarged as is the diameter of the portal vein. Probably an element of portal venous hypertension. 4. Possible colitis pattern in the ascending and transverse colon. Diverticulosis of the descending- left colon and sigmoid. No evidence of acute diverticulitis. Enlarged fibroid uterus. No ovarian masses. No free fluid. First read by [facility]. RADIATION DOSE DELIVERED: 995.15mGy.cm Total DLP DATA REPOSITORY: All CT scans at this facility are submitted to the National Radiology Data Registry (NRDR) Dose Index Registry (DIR) with the [employer] (ACR). RADIATION OPTIMIZATION: All CT scans at this facility use at least one of these dose optimization te chniques: automated exposure control; mA and/or kV adjustment per patient size (includes targeted exa ms where dose is matched to clinical indication); or iterative reconstruction.
[2022-07-10 20:03] LABS: ALT 33 U/L (14-59); AST 27 U/L (15-37); Albumin 3.7 g/dL (3.4-5.0); Alkaline Phosphatase 91 U/L (46-116); Anion Gap 9.3 mmol/L (3-11); BUN 17 mg/dL (7-18); Bilirubin, Total 1.4 mg/dL (0.2-1.0); CO2 26.7 mmol/L (21.0-32.0); CREATININE 0.8 mg/dL (0.55-1.02); Calcium 9.4 mg/dL (8.5-10.1); Chloride 103 mmol/L (98-107); Estimated GFR 72.61 (mL/min/1.73m2); Glucose 302 mg/dL (74-106); Lipase 35 U/L (73-393); Potassium 3.9 mmol/L (3.5-5.1); Sodium 139 mmol/L (136-145); TSH (W/Ref FT4) 2.66 uIU/mL (0.36-3.74); Total Protein 7.4 g/dL (6.4-8.2)
[2022-07-10 20:12] LABS: COVID-19 PCR Negative (Negative); Influenza A PCR Negative (Negative); Influenza B PCR Negative (Negative); RSV PCR Negative (Negative)
[2022-07-10 20:15] LABS: Source Nasopharynx
[2022-07-10] MEDS: MAGNESIUM SULFATE 1 GM/100 ML BAG IVPB (20:17)
--- NOTE | 2022-07-10 20:43 | DI.VRAD_ITS ---
PROCEDURE INFORMATION: Exam: XR Chest Exam date and time: 07/10/2022 8:00 PM Age: 82 years old Clinical indication: Other: Weakness TECHNIQUE: Imaging protocol: Radiologic exam of the chest. Views: 1 view. COMPARISON: CR XR CHEST 2V PA LATERAL 04/23/2022 1:13 PM FINDINGS: Lungs: Unremarkable. No consolidation. Pleural spaces: Unremarkable. No pleural effusion. No pneumothorax. Heart/Mediastinum: Unremarkable. No cardiomegaly. Bones/joints: Unremarkable. IMPRESSION: No acute findings. Dictated and Authenticated by: Rodolfo Pascual MD. Ordering:MARGIE Valencia MD
[2022-07-10 20:52] LABS: Bilirubin Negative (Negative); Blood Small (Negative); Clarity Cloudy (Clear); Glucose 100 mg/dL (Negative); Ketones 80 mg/dL (Negative); Leukocyte Esterase Moderate (Negative); Nitrite Positive (Negative); pH 5.5 (5-8)
[2022-07-10 21:01] LABS: Bacteria Many HPF (Negative); C & S Indicated? Yes; Casts 3-5 Hyaline LPF (Negative); Crystals Negative HPF (Negative); Epithelial Cells Few HPF (Negative); Mucus Moderate (Negative); WBC >50 HPF (0-5)
[2022-07-10] MEDS: Normal Saline - Diluent 50 ML VIAL IV (21:03)
[2022-07-10] MEDS: Omnipaque 350 MG/ML 100 ML BTL IJ (21:04)
[2022-07-10] MEDS: cefTRIAXone 1 GM/50 ML BAG IVPB (21:20)
[2022-07-10] MEDS: Acetaminophen 325 MG TAB 650 MG PO (21:41)
--- NOTE | 2022-07-10 21:45 | RT.EKG_ITS ---
APPROVED REPORT Exam: Resting ECG Reason for Exam: chest pain Patient Location: E HR:99 bpm ECG Measurements Heart Rate 99 AXIS DC 210 P -48 QRSd 131 QRS -64 QT 389 T 92 QTc 499 Conclusion Sinus rhythm...normal P axis, V-rate 60- 99 Borderline prolonged DC interval...DC >207, V-rate 91-120 Right bundle branch block...QRSd>120, terminal axis(90,270) Left ventricular hypertrophy...multiple LVH criteria ST elevation, consider inferior injury...ST >0.08mV, II III aVF Physician: no stemi, stable, unchanged, negative sgarbossa
--- NOTE | 2022-07-10 21:50 | DI.VRAD_ITS ---
PROCEDURE INFORMATION: Exam: CT Abdomen And Pelvis With Contrast Exam date and time: 07/10/2022 9:07 PM Age: 82 years old Clinical indication: Other: N/v, bili 1.4, wbc12.3 TECHNIQUE: Imaging protocol: Computed tomography of the abdomen and pelvis with contrast. Contrast material: 350; Contrast volume: 100 ml; Contrast route: INTRAVENOUS (IV); COMPARISON: CT ABDOMEN PELVIS W 04/10/2019 1:19 PM FINDINGS: Heart: Mild pericardial effusion. Diaphragm: Small hiatal hernia. Liver: There are postsurgical changes in the left lobe of the liver. Mild hepatic steatosis. Focal linear hypodensity at the site of postsurgical change along the falciform ligament is unchanged and probably due to the scar (13 series 4). Gallbladder and bile ducts: There is cholecystectomy. Pancreas: Normal. No ductal dilation. Spleen: Heterogeneous enhancement of spleen, at least in part related to phase of the contrast enhancement. There are multiple sub 5 mm cystic change within the spleen, new since previous exam. For example 4 mm hypodensity in the posteroinferior spleen, too small to be characterized (28 series 4). Additionally, spleen is slightly bulkier than before and is 13 cm in length, previously 12 cm in length. Adrenal glands: Normal. No mass. Kidneys and ureters: There is 1.9 cm cyst in the posterosuperior left kidney. Mild left hydroureter and extrarenal pelvis, possibly physiologic. There is cortical thinning or scarring in the left lower pole kidney similar to the previous exam. There is cortical hypodensity in the left upper pole kidney (28 series 4, 36 series 7) with blurriness of the corticomedullary interface. Mild urothelial enhancement of the left renal pelvis and left ureter noted. There is no obstructive stone. Stomach and bowel: Under distension, mucosal enhancement of the ascending and transverse colon suspicious of colitis. There are foci of diverticulosis in the large bowel without focal acute inflammation. No bowel obstruction. Appendix: No evidence of appendicitis. Intraperitoneal space: . No free air. No significant fluid collection. Vasculature: Portal veins are prominent measuring up to 1.9 cm in length suspicious of portal hypertension. Lymph nodes: Unremarkable. No enlarged lymph nodes. Urinary bladder: Urinary bladder demonstrate mucosal thickening and mild perivesical stranding consistent with cystitis. Reproductive: Uterus has lobulated contour with foci of calcifications noted consistent with fibroid. Bones/joints: Visualized bones are demineralized. There is mild dextroscoliosis of the lumbar spine. Multilevel disc degenerative changes noted. There is mild loss of height of superior endplate of T12, unchanged. Soft tissues: Small fat containing umbilical hernia. Small umbilical hernia. IMPRESSION: 1. Focal hypodensity in the left upper pole kidney with blurriness of the cortico medullary interface and mild urothelial enhancement in the left renal pelvis and left ureter suspicious of urine tract infection and pyelonephritis. Additionally, urinary bladder demonstrates mucosal thickening suspicious of cystitis. 2. Mucosal thickening and enhancement of the ascending and transverse colon suspicious of colitis, infectious or inflammatory process. 3. Cholecystectomy. No intra or extrahepatic biliary dilatation. 4. Postsurgical changes in the liver with left lobe lobectomy. Focal linear hypodensity at the surgical change at the lobectomy site is unchanged and likely due to the previous scar. 5. Portal vein is prominent , portal hypertension cannot be excluded.. 6. Spleen is mildly heterogeneous with small cystic changes within the spleen too small to be characterized on CT, new since previous exam, in part related to the phase of the contrast. Additional spleen has slightly enlarged since previous exam, possibly reactive versus sequela of portal hypertension. Ultrasound can be considered for further evaluation. Dictated and Authenticated by: Rodolfo Pascual MD. Ordering:MARGIE Valencia MD
[2022-07-10 22:52] LABS: Troponin I < 50 ng/L (<or=60)
--- NOTE | 2022-07-10 23:01 | ED.GENADUL_ITS ---
Discharge Plan Disposition Patient Disposition: Home Condition: Good Discharge Details Clinical Impression: Acute UTI, Colitis Primary Care Provider: Garcia Gilliland ED Provider: Bello Ambrosio Home Meds and New Rx's Prescriptions: New ciprofloxacin HCl [Cipro] 500 mg tablet 500 mg PO BID 7 Days Qty: 14 0RF metronidazole 500 mg tablet 500 mg PO Q8H 7 Days Qty: 21 0RF No Action solifenacin 5 mg tablet 5 mg PO DAILY levothyroxine 100 MCG tablet 100 mcg PO DAILY Levemir FlexTouch U-100 Insuln 100 unit/mL (3 mL) Insulin Pen 55 unit SUBCUT HS ibuprofen 800 mg Tablet 800 mg PO PRN PRN Label Comments: from pcp med list cyanocobalamin (vitamin B-12) 1,000 mcg/mL Solution 1,000 mcg IM [id number] magnesium oxide 500 mg capsule 500 mg PO DAILY Qty: 7 0RF metformin 500 mg tablet Label Comments: TAKE 2 TABLETS BY MOUTH TWICE DAILY Discharge Instructions Instructions: Urinary Tract Infection in Women (ED), Colitis (ED) Additional Instructions: At this time you have evidence of urinary tract infection as well as mild irritation in your colon called colitis. Please take the antibiotics as directed for treatment of these 2 pathologies. Drink plenty of fluids, stay well-hydrated. Avoid fatty or greasy foods. Please take a cranberry supplement to help with your urinary tract infection as well. If you notice any worsening of your symptoms, or any new symptoms such as vomiting, diarrhea, fever, chills, shortness of breath, chest pain, numbness, weakness, or fainting , please return immediately to the emergency department for reevaluation. Please follow up with your primary care provider as soon as possible for reassessment and reevaluation. As always, it was a pleasure participating in your medical care today. Referrals: Garcia Gilliland MD [Primary Care Provider] - Medical Decision Making Patient was signed out to me by my colleague Erik Villasenor. Please refer to his HPI, physical exam, assessment and plan. At time of signout we are pending repeat troponin. Repeat troponin and EKG have returned stable. Patient has tolerated p.o. well and she feels well. Exam demonstrates a nonsurgical abdomen. Patient does have evidence of urinary tract infection and mild colitis. She was given a prescription for Cipro and Flagyl for home use. Urinalysis showed sensitivities to Cipro on her last visit. Patient otherwise looks well. Discussed red flags which to return. I have extensively reviewed the treatment plan and discharge instructions with the patient. I have addressed all patient concerns at this time. The patient was made aware of what symptoms to monitor for that would warrant a return to the emergency department. Discussed the plan with the patient, they demonstrate verbal understanding and agreement with our assessment and plan at this time. The documentation in this chart was dictated using [employer] dictation software. Please excuse any dictation errors. HPI General Mode of arrival: wheelchair . Date/Time Provider Initiated Documentation: 07/10/22 19:21 . Limitations to Documentation: no limitations . Information obtained by: patient . Related Data Home Medications Medication Instructions Recorded Confirmed levothyroxine 100 mcg tablet 100 mcg PO DAILY 08/03/13 07/10/22 insulin detemir U-100 100 unit/mL 55 unit subcut HS 04/09/19 04/26/22 (3 mL) subcutaneous pen (Levemir FlexTouch U-100 Insulin) cyanocobalamin (vitamin B-12) 1,000 mcg IM [id number] 04/10/19 04/26/22 1,000 mcg/mL injection solution ibuprofen 800 mg tablet 800 mg PO PRN PRN 04/10/19 04/26/22 solifenacin 5 mg tablet 5 mg PO DAILY 06/03/21 07/10/22 magnesium oxide 500 mg capsule 500 mg PO DAILY #7 caps 04/23/22 04/26/22 ciprofloxacin HCl 500 mg tablet 500 mg PO BID 7 days #14 tabs 07/10/22 (Cipro) metformin 500 mg tablet tab 07/10/22 07/10/22 metronidazole 500 mg tablet 500 mg PO Q8H 7 days #21 tabs 07/10/22 Previous Rx's Medication Instructions Recorded magnesium oxide 500 mg capsule 500 mg PO DAILY #7 caps 04/23/22 ciprofloxacin HCl 500 mg tablet 500 mg PO BID 7 days #14 tabs 07/10/22 (Cipro) metronidazole 500 mg tablet 500 mg PO Q8H 7 days #21 tabs 07/10/22 Allergies Allergy/AdvReac Type Severity Reaction Status Date / Time penicillin G Allergy Intermediate Hives Unverified 04/26/22 13:18 morphine AdvReac Severe Nausea Unverified 04/26/22 13:18 General Stated Complaint: Abd Prob YU: 3 PFSH All Active Problems (Updated 07/10/22 @ 22:28 by Bello Ambrosio DO) Acute UTI (Acute) Colitis (Acute) Rotator cuff tear arthropathy of right shoulder (Acute) Contracture of right shoulder (Acute) Melanoma (Acute) Breast cancer (Chronic) Hypomagnesemia (Acute) Nausea and vomiting (Acute) Uncontrolled hypertension (Acute) Medical History Depression Hypothyroidism Peripheral neuropathy Urinary incontinence, mixed Vitamin B 12 deficiency Social History Smoking/Tobacco Use Status: Current every day Tobacco Type: cigarettes Smoking risk assessment performed?: Yes Alcohol Intake: current Alcohol Intake frequency: holidays/special occasions only Drug use: Never Substance use type: does not use Current gender identity: female Do you feel safe at home: Yes Do you feel safe in your relationship?: Yes Course Vital Signs Vital signs: Vital Signs Temperature 37 C 07/10/22 19:25 Pulse 121 H 07/10/22 19:25 Respiratory Rate 24 07/10/22 19:25 Blood Pressure 126/71 07/10/22 19:25 Pulse Oximetry 95 07/10/22 19:25 Temperature 37 C 07/10/22 19:25 Temperature Source Temporal Artery Scan 07/10/22 19:25 Pulse 62 07/10/22 22:41 Pulse 87 07/10/22 22:41 Respiratory Rate 18 07/10/22 22:41 Respiratory Effort 07/10/22 19:34 Blood Pressure 88/50 L 07/10/22 22:41 Blood Pressure Mean 59 07/10/22 22:41 Pulse Oximetry 95 07/10/22 19:25 Oxygen Delivery Method Room Air 07/10/22 19:25 Oxygen Flow Rate 0 07/10/22 19:25 Pain Level 0 07/10/22 19:25 Lab/Test Results Lab/Test Results: 07/10/22 20:46 Urine - Reflex from Ua Urine Culture - Pending Laboratory Tests Range/Units 07/10/22 07/10/22 07/10/22 19:30 19:30 19:31 WBC (4.4-10.8) 10^3/uL RBC (3.93-5.22) 10^6/uL Hgb (11.2-15.7) g/dL Hct (36.0-46.0) % MCV (80-95) fL MCH (27.0-33.0) pg MCHC (32.0-36.0) % RDW (11.7-14.6) % Plt Count (130-400) 10^3/uL MPV (8.0-11.0) fL Immature Gran % Neutrophils % Lymphocytes % Monocytes % Eosinophils % Basophils % Nucleated RBC % (0.0-0.3) % Absolute Neutrophils (1.2-6.7) 10^3/uL Absolute Lymphocytes (1.2-3.4) 10^3/uL Absolute Monocytes (0.1-0.8) 10^3/uL Absolute Eosinophils (0.0-0.7) 10^3/uL Absolute Basophils (0.0-0.2) 10^3/uL Sodium (136-145) mmol/L 139 Potassium (3.5-5.1) mmol/L 3.9 Chloride (98-107) mmol/L 103 Carbon Dioxide (21.0-32.0) mmol/L 26.7 Anion Gap (3-11) mmol/L 9.3 BUN (7-18) mg/dL 17 Creatinine (0.55-1.02) mg/dL 0.8 Est GFR (CKD-EPI 2020) (mL/min/1.73m2) 72.61 Glucose (74-106) mg/dL 302 H Calcium (8.5-10.1) mg/dL 9.4 Magnesium (1.8-2.4) mg/dL 1.5 L Total Bilirubin (0.2-1.0) mg/dL 1.4 H AST (15-37) U/L 27 ALT (14-59) U/L 33 Alkaline Phosphatase (46-116) U/L 91 Troponin I (<or=60) ng/L < 50 Total Protein (6.4-8.2) g/dL 7.4 Albumin (3.4-5.0) g/dL 3.7 Lipase (73-393) U/L 35 TSH (0.36-3.74) uIU/mL 2.66 Urine Color (Yellow) Urine Clarity (Clear) Urine pH (5-8) Ur Specific [place] (1.005-1.025) Urine Protein (Negative) mg/dL Urine Ketones (Negative) mg/dL Urine Blood (Negative) Urine Nitrite (Negative) Urine Bilirubin (Negative) Urine Urobilinogen (Up TO 0.2) EU/dL Ur Leukocyte Esterase (Negative) Urine RBC (0-2) HPF Urine WBC (0-5) HPF Ur Epithelial Cells (Negative) HPF Urine Crystals (Negative) HPF Urine Bacteria (Negative) HPF Urine Casts (Negative) LPF Urine Mucus (Negative) Ur Culture Indicated? Urine Glucose (Negative) mg/dL COVID-19 Source Nasopharynx SARS-CoV-2 (PCR) (Negative) Negative Influenza Type A (PCR) (Negative) Negative Influenza Type B (PCR) (Negative) Negative RSV (PCR) (Negative) Negative Range/Units 07/10/22 07/10/22 07/10/22 19:31 20:46 22:31 WBC (4.4-10.8) 10^3/uL 12.30 H RBC (3.93-5.22) 10^6/uL 5.41 H Hgb (11.2-15.7) g/dL 14.9 Hct (36.0-46.0) % 45.0 MCV (80-95) fL 83 MCH (27.0-33.0) pg 27.5 MCHC (32.0-36.0) % 33.1 RDW (11.7-14.6) % 13.7 Plt Count (130-400) 10^3/uL 239 MPV (8.0-11.0) fL 10.9 Immature Gran % 0.3 Neutrophils % 89.4 Lymphocytes % 2.1 Monocytes % 7.8 Eosinophils % 0.2 Basophils % 0.2 Nucleated RBC % (0.0-0.3) % 0.0 Absolute Neutrophils (1.2-6.7) 10^3/uL 11.00 H Absolute Lymphocytes (1.2-3.4) 10^3/uL 0.26 L Absolute Monocytes (0.1-0.8) 10^3/uL 0.96 H Absolute Eosinophils (0.0-0.7) 10^3/uL 0.02 Absolute Basophils (0.0-0.2) 10^3/uL 0.02 Sodium (136-145) mmol/L Potassium (3.5-5.1) mmol/L Chloride (98-107) mmol/L Carbon Dioxide (21.0-32.0) mmol/L Anion Gap (3-11) mmol/L BUN (7-18) mg/dL Creatinine (0.55-1.02) mg/dL Est GFR (CKD-EPI 2020) (mL/min/1.73m2) Glucose (74-106) mg/dL Calcium (8.5-10.1) mg/dL Magnesium (1.8-2.4) mg/dL Total Bilirubin (0.2-1.0) mg/dL AST (15-37) U/L ALT (14-59) U/L Alkaline Phosphatase (46-116) U/L Troponin I (<or=60) ng/L < 50 Total Protein (6.4-8.2) g/dL Albumin (3.4-5.0) g/dL Lipase (73-393) U/L TSH (0.36-3.74) uIU/mL Urine Color (Yellow) Yellow Urine Clarity (Clear) Cloudy Urine pH (5-8) 5.5 Ur Specific [place] (1.005-1.025) 1.020 Urine Protein (Negative) mg/dL 100 H Urine Ketones (Negative) mg/dL 80 H Urine Blood (Negative) Small H Urine Nitrite (Negative) Positive H Urine Bilirubin (Negative) Negative Urine Urobilinogen (Up TO 0.2) EU/dL 2.0 H Ur Leukocyte Esterase (Negative) Moderate H Urine RBC (0-2) HPF 5-10 H Urine WBC (0-5) HPF >50 H Ur Epithelial Cells (Negative) HPF Few Urine Crystals (Negative) HPF Negative Urine Bacteria (Negative) HPF Many Urine Casts (Negative) LPF 3-5 Hyaline Urine Mucus (Negative) Moderate Ur Culture Indicated? Yes Urine Glucose (Negative) mg/dL 100 COVID-19 Source SARS-CoV-2 (PCR) (Negative) Influenza Type A (PCR) (Negative) Influenza Type B (PCR) (Negative) RSV (PCR) (Negative) Sign Out Sign Out Data: Sign Out Comment: Nausea, vomiting, generalized weakness that began this late afternoon. Work-up reveals UTI, given Rocephin. CT imaging also raises suspicion for pyelonephritis and colitis. Patient received 2 L IV fluid, Zofran, able to tolerate p.o. intake now. Also given 1 g IV magnesium and originally Zofran for nausea. Patient reports feeling improvement, prefer to be discharged home. She appears well, nontoxic. Plan to continue to p.o. challenge, we do likely need to add additional antibiotics given the pyelonephritis and/or colitis and await delta troponin. Last updated by Erik Villasenor PA at 07/10/22 21:59 PAWSS Have you Been Recently Intoxicated or Drunk Within the Last 30 days?: No Have you Ever Experienced Previous Episodes of Alcohol Withdrawal?: No Have you ever Experienced Withdrawal Seizures?: No Have you ever Experienced Delirium Tremens(DT)s?: No Have you ever undergone Alcohol Rehabilitation Treatment (i.e, inpt ot outpatient treatment programs)?: No Have you ever Experienced Blackouts?: No Have you ever Combined Alcohol with other Downers within the last 90 days?: No Have you ever Combined Alcohol with any other Substance of Abuse during the last 90 days?: No Positive Blood Alcohol level on Presentation? [PCS.BAL]: No Evidence of Increased Autonomic Activity (i.e. HR>120, tremor, sweating, agitation, nausea)?: No Result: 0
[2022-07-10] MEDS: metroNIDAZOLE 500 MG TAB, 3 TABS/BTL PO (23:20)
== END 2022-07-10 23:15 | disposition home or self-care (01) ==
PROVIDERS: Physician Assistant; Emergency Provider Student in an Organized Health Care Education/Training Program; PCP Internal Medicine
DX: N39.0 Urinary tract infection, site not specified (principal); K52.9 Noninfective gastroenteritis and colitis, unspecified; E11.42 Type 2 diabetes mellitus with diabetic polyneuropathy; I10 Essential (primary) hypertension; D72.829 Elevated white blood cell count, unspecified; Z79.84 Long term (current) use of oral hypoglycemic drugs; Z20.822 Contact with and (suspected) exposure to COVID-19
CPT/HCPCS: 36415; 36416; 80053; 82962; 83690; 87077; 87637; 93005; 96361; 96365; 96367; 96372; 96375; 99285; 71045; 74177; 81003; 81015; 83735; 84443; 84484; 85025; 87086; 87186; 93010; J0696; J2405; J3475; J3490

== ENCOUNTER 2022-12-14 14:04 | Outpatient (REF) | payer OTHER, BC, SELFPAY ==
[2022-12-14 15:18] LABS: Abs Immature Grans 0.03 10^3/uL (0.0-0.06); Absolute Basophil Count 0.05 10^3/uL (0.0-0.2); Absolute Eosinophil Count 0.23 10^3/uL (0.0-0.7); Absolute Lymphocyte Count 1.41 10^3/uL (1.2-3.4); Absolute Monocyte Count 0.55 10^3/uL (0.1-0.8); Absolute Neutrophil Count 5.55 10^3/uL (1.2-6.7); Basophils % 0.6; Eosinophils % 2.9; HCT 42.3 % (36.0-46.0); HGB 14.5 g/dL (11.2-15.7); Immature Grans % 0.4; MCH 27.6 pg (27.0-33.0); MCHC 34.3 % (32.0-36.0); MCV 80 fL (80-95); MPV 10.9 fL (8.0-11.0); Neutrophils % 71.1; Platelet Count 262 10^3/uL (130-400); RBC 5.26 10^6/uL (3.93-5.22); RDW 13.4 % (11.7-14.6); RDW-SD 38.9 fL; WBC 7.82 10^3/uL (4.4-10.8)
[2022-12-14 15:48] LABS: ALT 22 U/L (14-59); AST 22 U/L (15-37); Albumin 3.7 g/dL (3.4-5.0); Alkaline Phosphatase 66 U/L (46-116); Anion Gap 9.9 mmol/L (3-11); BUN 13 mg/dL (7-18); Bilirubin, Total 0.5 mg/dL (0.2-1.0); CO2 26.1 mmol/L (21.0-32.0); CREATININE 0.7 mg/dL (0.55-1.02); Calcium 9.1 mg/dL (8.5-10.1); Chloride 105 mmol/L (98-107); Estimated GFR 85.23 (mL/min/1.73m2); Glucose 154 mg/dL (74-106); Magnesium 1.7 mg/dL (1.8-2.4); Potassium 4.1 mmol/L (3.5-5.1); Sodium 141 mmol/L (136-145); Total Protein 6.8 g/dL (6.4-8.2)
[2022-12-14 17:31] LABS: ESR 1 mm/hr (0-30)
[2022-12-14 22:03] LABS: TSH 7.82 uIU/mL (0.36-3.74)
[2022-12-15 14:27] LABS: Albumin 61.3 % (55.8-66.1); Albumin g/dL 3.7 g/dL (3.6-5.2)
== END 2022-12-14 14:05 | disposition home or self-care (01) ==
LOC: NCHCN 14:04
PROVIDERS: PCP Internal Medicine; Visit Provider Internal Medicine
DX: E11.49 Type 2 diabetes mellitus with other diabetic neurological complication (principal); E03.9 Hypothyroidism, unspecified; R63.4 Abnormal weight loss; M54.59 Other low back pain
CPT/HCPCS: 80053; 85652; 83735; 84165; 84443; 85025

== ENCOUNTER 2023-01-24 01:13 | Outpatient (CLI) | payer OTHER, BC, SELFPAY ==
--- NOTE | 2023-01-24 12:41 | DI.RAD_ITS ---
Exam(s) XR FOOT LT COMPLETE EXAM: XR FOOT LT COMPLETE CLINICAL HISTORY: ? oa, LT FOOT PAIN, M79.672. TECHNIQUE: 2D digital imaging was performed. COMPARISON: No exams were available for comparison FINDINGS: 3 views No evidence of acute fracture or diastasis of the Lisfranc joint. There is subluxation at the level of the metatarsophalangeal joint of the 2nd toe. The base of the proximal phalanx is subluxed medial ly relative to the head of the 2nd metatarsal. Other MTP joints appear unremarkable. No fractures. Mild degenerative changes in the great toe metatarsophalangeal joint. IMPRESSION: Subluxation is noted at the 2nd MTP joint. No fractures evident. DATA REPOSITORY: RADIATION DOSE DELIVERED:
== END 2023-01-24 01:33 ==
LOC: DI 01:14
PROVIDERS: PCP Internal Medicine; Visit Provider Podiatrist
DX: M79.672 Pain in left foot (principal); S93.145A Subluxation of metatarsophalangeal joint of left lesser toe(s), initial encounter
CPT/HCPCS: 73630

== ENCOUNTER 2023-02-17 19:07 | Outpatient (REF) | payer OTHER, BC, SELFPAY ==
[2023-02-17 14:39] LABS: TSH (W/Ref FT4) 4.65 uIU/mL (0.36-3.74)
[2023-02-17 15:11] LABS: FREE T4 1.15 ng/dL (0.76-1.46)
== END 2023-02-17 19:08 | disposition home or self-care (01) ==
LOC: NCHCN 19:07
PROVIDERS: PCP Internal Medicine; Visit Provider Internal Medicine
DX: E03.9 Hypothyroidism, unspecified (principal); R62.7 Adult failure to thrive
CPT/HCPCS: 84439; 84443

== ENCOUNTER 2023-04-04 14:28 | Outpatient (REF) | payer OTHER, BC, SELFPAY ==
[2023-04-04 16:10] LABS: FREE T4 0.93 ng/dL (0.76-1.46); TSH 5.82 uIU/mL (0.36-3.74)
== END 2023-04-04 14:29 | disposition home or self-care (01) ==
LOC: NCHCN 14:28
PROVIDERS: PCP Internal Medicine; Visit Provider Internal Medicine
DX: E03.9 Hypothyroidism, unspecified (principal)
CPT/HCPCS: 84439; 84443

== ENCOUNTER 2023-10-13 18:05 | Outpatient (REF) | payer OTHER, BC, SELFPAY ==
[2023-10-13 21:13] LABS: HGB 14.2 g/dL (11.2-15.7); MCH 27.6 pg (27.0-33.0); MCHC 33.8 % (32.0-36.0); MCV 82 fL (80-95); MPV 11.1 fL (8.0-11.0); Platelet Count 253 10^3/uL (130-400); RBC 5.14 10^6/uL (3.93-5.22); RDW 13.3 % (11.7-14.6); RDW-SD 39.5 fL; WBC 8.47 10^3/uL (4.4-10.8)
[2023-10-13 21:41] LABS: ALT 16 U/L (14-59); AST 17 U/L (15-37); Albumin 3.6 g/dL (3.4-5.0); Alkaline Phosphatase 54 U/L (46-116); Anion Gap 10.1 mmol/L (3-11); BUN 15 mg/dL (7-18); Bilirubin, Total 0.3 mg/dL (0.2-1.0); CO2 25.9 mmol/L (21.0-32.0); CREATININE 0.6 mg/dL (0.55-1.02); Calcium 8.9 mg/dL (8.5-10.1); Chloride 105 mmol/L (98-107); Estimated GFR 87.91 (mL/min/1.73m2); Glucose 134 mg/dL (74-106); Potassium 4.2 mmol/L (3.5-5.1); Sodium 141 mmol/L (136-145); TSH (W/Ref FT4) 8.44 uIU/mL (0.36-3.74); Total Protein 6.6 g/dL (6.4-8.2)
[2023-10-13 21:58] LABS: FREE T4 0.82 ng/dL (0.76-1.46)
== END 2023-10-13 18:06 | disposition home or self-care (01) ==
LOC: NCHCN 18:05
PROVIDERS: PCP Internal Medicine; Referring Provider Family Medicine; Visit Provider Family Medicine
DX: D64.9 Anemia, unspecified (principal); E78.5 Hyperlipidemia, unspecified; E03.9 Hypothyroidism, unspecified
CPT/HCPCS: 80053; 85027; 84439; 84443

== ENCOUNTER 2024-05-10 16:52 | Outpatient (REF) | payer OTHER, BC, SELFPAY ==
[2024-05-10 21:35] LABS: Magnesium 1.6 mg/dL (1.8-2.4)
[2024-05-10 21:42] LABS: Hemoglobin A1C 8.4 % (<5.7)
== END 2024-05-10 16:53 | disposition home or self-care (01) ==
LOC: NCHCN 16:52
PROVIDERS: PCP Internal Medicine; Visit Provider Family Medicine
DX: E11.9 Type 2 diabetes mellitus without complications (principal)
CPT/HCPCS: 83036; 83735

== ENCOUNTER 2024-08-27 21:06 | Outpatient (REF) | payer MEDICARE, BC, SELFPAY ==
[2024-08-27 22:11] LABS: COMMENT (LAB VIEW ONLY) 59.87 mg/dL; Microalb ug/mg Crea 31.7 ug/mg Cr
== END 2024-08-27 21:07 | disposition home or self-care (01) ==
LOC: NCHCN 21:06
PROVIDERS: PCP Internal Medicine; Visit Provider Family Medicine
DX: E11.9 Type 2 diabetes mellitus without complications (principal)
CPT/HCPCS: 82043; 82570